=== PATIENT | female | born 1955 | race Caucasian/White ===

== ENCOUNTER 2019-05-12 08:00 | Outpatient (CLI) | payer BC, SELFPAY ==
--- NOTE | ~2019-05-12 | MM_ITS ---
EXAMINATION: MM screening fabio BI w quentin HISTORY: Screening mammogram, family history of breast cancer in her mother. TECHNIQUE: Craniocaudal and mediolateral oblique 3-D tomosynthesis images were obtained and synthetic 2-D images were generated. CAD analysis was submitted and interpreted. COMPARISON: 02/27/2018, 01/03/2017, 12/13/1915 BREAST PARENCHYMAL COMPOSITION: There are scattered areas of fibroglandular density. FINDINGS: There is no evidence of suspicious mass, calcification, or architectural distortion to sugg est malignancy in either breast. There has been no suspicious interval change. IMPRESSION: 1. No mammographic evidence of malignancy. 2. Recommend routine screening mammography in one year. BI-RADS Category 1: Negative Reviewed, dictated and finalized at location A. ONAL HR MANAGER
== END 2019-05-12 08:01 | disposition home or self-care (01) ==
LOC: ANHIMG 08:02
PROVIDERS: PCP Family Medicine; Visit Provider Family Medicine
DX: Z12.31 Encounter for screening mammogram for malignant neoplasm of breast (principal)
CPT/HCPCS: 77063; 77067

== ENCOUNTER 2020-05-26 09:19 | Outpatient (CLI) | payer BC, SELFPAY ==
--- NOTE | ~2020-05-26 | MM_ITS ---
EXAMINATION: MM screening fabio BI w quentin HISTORY: Screening TECHNIQUE: Craniocaudal and mediolateral oblique 3-D tomosynthesis images were obtained and synthetic 2-D images were generated. CAD analysis was submitted and interpreted. COMPARISON: Comparison to multiple prior studies sequentially, with oldest reviewed study dated 10/06. BREAST PARENCHYMAL COMPOSITION: There are scattered areas of fibroglandular density. FINDINGS: There is no evidence of suspicious mass, calcification, or architectural distortion to sugg est malignancy in either breast. There has been no suspicious interval change. IMPRESSION: 1. No mammographic evidence of malignancy. 2. Recommend routine screening mammography in one year. BI-RADS Category 1: Negative Reviewed, dictated and finalized at location A. IAL EDUCATION RESOURCE TEACHER
== END 2020-05-26 09:20 | disposition home or self-care (01) ==
LOC: ANHIMG 09:23
PROVIDERS: PCP Family Medicine; Visit Provider Family Medicine
DX: Z12.31 Encounter for screening mammogram for malignant neoplasm of breast (principal)
CPT/HCPCS: 77063; 77067

== ENCOUNTER 2020-12-13 08:27 | Outpatient (CLI) | payer MEDICARE, SELFPAY ==
[2020-12-13 09:48] LABS: Basophils Percent Auto 0.6 % (0.2-1.2); Eosinophils Absolute Auto 0.2 K/mm3 (0-0.3); Eosinophils Percent Auto 3.4 % (0-4.4); Hematocrit 38.3 % (37.0-47.0); Hemoglobin 12.2 g/dL (12.0-15.0); Immature Granulocyte Absolute 0.02 K/mm3 (0.00-0.031); Immature Granulocyte Percent A 0.4 % (0-0.5); Lymphocytes Absolute Auto 2.16 K/mm3 (0.9-3.2); Lymphocytes Percent Auto 40.9 % (18.3-44.2); Mean Corpuscular HGB Conc 31.9 g/dl (32-36); Mean Corpuscular Hemoglobin 28.2 pg (26-34); Mean Corpuscular Volume 88.7 fl (80-100); Mean Platelet Volume 9.7 fl (7.4-10.4); Monocytes Absolute Auto 0.5 K/mm3 (0.1-0.6); Monocytes Percent Auto 9.1 % (2.6-8.5); Neutrophils Absolute Auto 2.4 K/mm3 (1.3-6.7); Neutrophils Percent Auto 45.6 % (45.5-73.1); Platelet Count Result 331 k/mm3 (150-375); Red Blood Count 4.32 M/mm3 (4.2-5.4); Red Cell Distribution Width 13.8 % (11.5-14.5); White Blood Count 5.3 K/mm3 (4.5-10.0)
[2020-12-13 10:02] LABS: Alanine Aminotransferase 26 U/L (4-35); Albumin Level 4.7 g/dL (3.5-5.1); Alkaline Phosphatase 48 U/L (38-126); Anion Gap 10 mmol/L (8-16); Aspartate Amino Transferase 29 U/L (14-36); Bilirubin,Total 0.4 mg/dL (0.2-1.3); Blood Urea Nitrogen 11 mg/dL (7-17); Calcium 9.2 mg/dL (8.4-10.2); Carbon Dioxide 27 mmol/L (22-30); Chloride 105 mmol/L (98-107); Cholesterol 177 mg/dL (0-200); Estimated Glomerular Filt Rate > 60; Glucose 96 mg/dL (65-110); HDL Direct 69 mg/dL; Potassium 4.6 mmol/L (3.4-5.0); Sodium 142 mmol/L (137-145); Triglycerides 109 mg/dL (<150)
[2020-12-13 10:13] LABS: LDL Cholesterol Direct 78 mg/dL
[2020-12-13 10:53] LABS: Free T4 Free Thyroxine 0.88 ng/mL (0.78-2.19)
== END 2020-12-13 08:28 | disposition home or self-care (01) ==
LOC: ANHLAB 08:54
PROVIDERS: PCP Family Medicine; Visit Provider Family Medicine
DX: E78.2 Mixed hyperlipidemia (principal); R60.9 Edema, unspecified; Z00.00 Encounter for general adult medical examination without abnormal findings
CPT/HCPCS: 36415; 80053; 80061; 84439; 84443; 85025

== ENCOUNTER 2021-01-03 09:33 | Outpatient (CLI) | payer MEDICARE, SELFPAY ==
--- NOTE | 2021-01-03 09:51 | ECHO_ITS ---
Patient Info Name: Jade Angulo Age: 65 years : 1955 Gender: Female Ht: 58 in Wt: 127 lbs BSA: 1.55 m2 HR: 75 bpm Technical Quality: Good Exam Date: 01/03/2021 9:54 AM Exam Location: [facility] Patient Status: Outpatient Admit Date: 01/03/2021 Staff Ordering Physician: Darrin Melchor MD Compensation Associate: KATIE Attending Provider: Darrin Melchor MD Referring Physician: Jill ZUNIGA; Exam Type: CA echo doppler color flow Study Info Indications I35.1 - Nonrheumatic aortic (valve) insufficiency Complete two-dimensional, color flow and Doppler transthoracic echocardiogram is performed. Summary 1. Complete two-dimensional, color flow and Doppler transthoracic echocardiogram is performed. 2. Left ventricular chamber dimension is normal. 3. Left ventricular systolic function is normal, estimated at 60-65%. 4. The left ventricular diastolic function is grade I diastolic dysfunction. 5. E/e' 14 is mildly elevated. 6. There is mild to moderate aortic valve regurgitation. 7. There is trace mitral valve regurgitation. 8. No pulmonary hypertension, estimated pulmonary arterial systolic pressure is 9 mmHg. 9. There is trace pulmonic regurgitation. 10. There is trivial pericardial effusion. Left Ventricle E/e' 14 is mildly elevated. Left ventricular chamber dimension is normal. Left ventricular systolic function is normal, estimated at 60-65%. The left ventricular diastolic function is grade I diastolic dysfunction. Right Ventricle Right ventricular chamber dimension is normal. Right ventricular systolic function is normal. Left Atria Left atrial chamber dimension is normal. Right Atria Right atrial chamber dimension is normal. Aortic Valve The aortic valve is trileaflet. There is no aortic valve stenosis. There is mild to moderate aortic valve regurgitation. Pulmonic Valve There is trace pulmonic regurgitation. Mitral Valve There is no mitral valve stenosis. There is trace mitral valve regurgitation. Tricuspid Valve There is no tricuspid valve regurgitation. No pulmonary hypertension, estimated pulmonary arterial systolic pressure is 9 mmHg. Pericardium/Pleural There is trivial pericardial effusion. Inferior Vena Cava Normal inferior vena cava with >50% collapse upon inspiration consistent with normal right atrial pressure, 5 mmHg. Aorta The aortic root size at the sinus of Valsalva is normal. Left Ventricular Outflow Tract Name Value Normal LVOT 2D LVOT Diameter 1.9 cm LVOT Doppler LVOT Peak Gradient 5 mmHg LVOT Mean Gradient 2 mmHg LVOT VTI 25 cm LVOT VTI/AV VTI Ratio 0.8 LVOT Stroke Volume 71 ml LVOT CO 12.5 l/min LVOT CI 8.0 l/min/m2 Mitral Valve Name Value Normal
== END 2021-01-03 09:34 | disposition home or self-care (01) ==
LOC: ANHCARD 09:35
PROVIDERS: PCP Family Medicine; Visit Provider Family Medicine
DX: I35.1 Nonrheumatic aortic (valve) insufficiency (principal)
CPT/HCPCS: 93306

== ENCOUNTER → 2021-02-28 09:12 | Outpatient (REF) | payer MEDICARE, SELFPAY | LOC: ANHLAB 09:12 | PROVIDERS: PCP Family Medicine; Visit Provider Nurse Practitioner | DX: C44.519 Basal cell carcinoma of skin of other part of trunk (principal); C44.612 Basal cell carcinoma of skin of right upper limb, including shoulder; C44.319 Basal cell carcinoma of skin of other parts of face | CPT/HCPCS: 88305 ==

== ENCOUNTER → 2021-03-13 07:39 | Outpatient (REF) | payer MEDICARE, SELFPAY | LOC: ANHLAB 07:39 | PROVIDERS: PCP Family Medicine; Visit Provider Nurse Practitioner | DX: C44.519 Basal cell carcinoma of skin of other part of trunk (principal) | CPT/HCPCS: 88305; 88331 ==

== ENCOUNTER → 2021-04-17 09:43 | Outpatient (REF) | payer MEDICARE, SELFPAY | LOC: ANHLAB 09:43 | PROVIDERS: PCP Family Medicine; Visit Provider Nurse Practitioner | DX: C44.319 Basal cell carcinoma of skin of other parts of face (principal); C44.612 Basal cell carcinoma of skin of right upper limb, including shoulder | CPT/HCPCS: 88305; 88331 ==

== ENCOUNTER 2021-09-01 14:43 | Outpatient (CLI) | payer MEDICARE, SELFPAY ==
--- NOTE | ~2021-09-01 | MM_ITS ---
EXAMINATION: MM screening fabio BI w quentin HISTORY: Screening mammogram, family history of breast cancer in her mother. TECHNIQUE: Craniocaudal and mediolateral oblique 3-D tomosynthesis images were obtained and synthetic 2-D images were generated. CAD analysis was submitted and interpreted. COMPARISON: 05/26/2020, 05/12/2019, 02/27/2018 BREAST PARENCHYMAL COMPOSITION: There are scattered areas of fibroglandular density. FINDINGS: There is no suspicious mass, calcification, or architectural distortion to suggest malignan cy in either breast. There has been no suspicious interval change. IMPRESSION: 1. No mammographic evidence of malignancy. 2. Recommend routine screening mammography in one year. BI-RADS Category 1: Negative Reviewed, dictated and finalized at location A.
== END 2021-09-01 14:44 | disposition home or self-care (01) ==
LOC: ANHIMG 14:44
PROVIDERS: PCP Family Medicine; Visit Provider Physician Assistant
DX: Z12.31 Encounter for screening mammogram for malignant neoplasm of breast (principal)
CPT/HCPCS: 77063; 77067

== ENCOUNTER 2022-02-09 06:57 | Outpatient (CLI) | payer MEDICARE, SELFPAY ==
[2022-02-09 07:55] LABS: Basophils Absolute Auto 0.1 K/mm3 (0.0-0.1); Basophils Percent Auto 1.5 % (0.2-1.2); Eosinophils Absolute Auto 0.1 K/mm3 (0-0.3); Eosinophils Percent Auto 4.1 % (0-4.4); Hematocrit 27.8 % (37.0-47.0); Hemoglobin 7.9 g/dL (12.0-15.0); Immature Granulocyte Absolute 0.01 K/mm3 (0.00-0.031); Immature Granulocyte Percent A 0.3 % (0-0.5); Lymphocytes Absolute Auto 1.23 K/mm3 (0.9-3.2); Lymphocytes Percent Auto 35.8 % (18.3-44.2); Mean Corpuscular HGB Conc 28.4 g/dl (32-36); Mean Corpuscular Hemoglobin 20.6 pg (26-34); Mean Corpuscular Volume 72.6 fl (80-100); Mean Platelet Volume 9.7 fl (7.4-10.4); Monocytes Absolute Auto 0.3 K/mm3 (0.1-0.6); Monocytes Percent Auto 8.4 % (2.6-8.5); Neutrophils Absolute Auto 1.7 K/mm3 (1.3-6.7); Neutrophils Percent Auto 49.9 % (45.5-73.1); Platelet Count Result 316 k/mm3 (150-375); Red Blood Count 3.83 M/mm3 (4.2-5.4); Red Cell Distribution Width 17.8 % (11.5-14.5); White Blood Count 3.4 K/mm3 (4.5-10.0)
[2022-02-09 08:20] LABS: Alanine Aminotransferase 24 U/L (6-35); Albumin Level 4.5 g/dL (3.5-5.1); Alkaline Phosphatase 45 U/L (38-126); Anion Gap 13 mmol/L (8-16); Aspartate Amino Transferase 29 U/L (14-36); Bilirubin,Total 0.3 mg/dL (0.2-1.3); Blood Urea Nitrogen 12 mg/dL (7-17); Carbon Dioxide 26 mmol/L (22-30); Chloride 103 mmol/L (98-107); Cholesterol 185 mg/dL (0-200); Estimated Glomerular Filt Rate > 60; Glucose 91 mg/dL (65-110); HDL Direct 80 mg/dL; Potassium 3.8 mmol/L (3.4-5.0); Sodium 142 mmol/L (137-145); Triglycerides 73 mg/dL (<150)
[2022-02-09 08:31] LABS: LDL Cholesterol Direct 76 mg/dL
[2022-02-09 10:10] LABS: Hypochromasia 2+ (NORMAL); Microcytosis 1+ (NORMAL); Ovalocytes 1+ (NORMAL)
[2022-02-09 10:11] LABS: Schistocytes None Seen (NORMAL)
[2022-02-12 11:18] LABS: Folic Acid > 20.0 ng/mL (2.76->20)
== END 2022-02-09 06:58 | disposition home or self-care (01) ==
LOC: ANHLAB 06:59
PROVIDERS: PCP Family Medicine; Visit Provider Physician Assistant
DX: E78.2 Mixed hyperlipidemia (principal); I10 Essential (primary) hypertension; I67.1 Cerebral aneurysm, nonruptured; Z79.899 Other long term (current) drug therapy; D64.9 Anemia, unspecified
CPT/HCPCS: 36415; 80053; 80061; 82607; 82746; 84443; 85025

== ENCOUNTER 2022-02-12 10:25 | Outpatient (CLI) | payer MEDICARE, SELFPAY ==
[2022-02-12 18:49] LABS: Iron 21 ug/dL (37-170)
[2022-02-12 18:54] LABS: Basophils Percent Auto 0.9 % (0.2-1.2); Eosinophils Absolute Auto 0.1 K/mm3 (0-0.3); Eosinophils Percent Auto 2.2 % (0-4.4); Hemoglobin 8.3 g/dL (12.0-15.0); Immature Granulocyte Absolute 0.01 K/mm3 (0.00-0.031); Immature Granulocyte Percent A 0.2 % (0-0.5); Immature Reticulocyte Fraction 21.8 % (3.0-15.9); Lymphocytes Absolute Auto 1.67 K/mm3 (0.9-3.2); Mean Corpuscular HGB Conc 27.7 g/dl (32-36); Mean Corpuscular Hemoglobin 20.4 pg (26-34); Mean Corpuscular Volume 73.9 fl (80-100); Mean Platelet Volume 10.2 fl (7.4-10.4); Monocytes Absolute Auto 0.3 K/mm3 (0.1-0.6); Monocytes Percent Auto 7.3 % (2.6-8.5); Neutrophils Absolute Auto 2.5 K/mm3 (1.3-6.7); Neutrophils Percent Auto 53.4 % (45.5-73.1); Platelet Count Result 334 k/mm3 (150-375); Red Blood Count 4.06 M/mm3 (4.2-5.4); Red Cell Distribution Width 17.8 % (11.5-14.5); Reticulocyte Percent 1.57 % (0.7-4.3); Reticulocytes Absolute 0.06 B/L (32.2-175.7); White Blood Count 4.6 K/mm3 (4.5-10.0)
[2022-02-12 19:20] LABS: Percent Iron Saturation 4 % (20-50)
[2022-02-12 19:50] LABS: Hepatitis C Virus Antibody Negative (Negative)
[2022-02-12 19:55] LABS: Immunochemical Fecal Occult Bl Positive (N)
[2022-02-12 19:56] LABS: IFOB Positive Control Positive
[2022-02-12 20:06] LABS: Folic Acid > 20.0 ng/mL (2.76->20)
[2022-02-12 20:07] LABS: Anisocytosis 2+ (NORMAL); Hypochromasia 1+ (NORMAL); Platelet Estimate Adequate (Adequate); Schistocytes None Seen (NORMAL)
== END 2022-02-12 10:26 | disposition home or self-care (01) ==
PROVIDERS: PCP Family Medicine; Visit Provider Physician Assistant
DX: D22.9 Melanocytic nevi, unspecified (principal); Z11.59 Encounter for screening for other viral diseases; D64.9 Anemia, unspecified
CPT/HCPCS: 36415; 82274; 82607; 82728; 82746; 83540; 83550; 85025; 85046; 86803

== ENCOUNTER → 2022-02-12 10:47 | Outpatient (CLI) | payer MEDICARE, SELFPAY ==
--- NOTE | ~2022-02-12 | XR_ITS ---
EXAMINATION: XR chest 2V 02/12/2022 11:13 INDICATION: Anemia. PROCEDURE: 2 view chest COMPARISON: No prior studies for comparison. FINDINGS: The lungs are clear. The cardiomediastinal silhouette is within normal limits. There are no pleural effusions. There is no pneumothorax suspected. IMPRESSION: 1: NO ACUTE CARDIOPULMONARY DISEASE. Reviewed, dictated and finalized at location B. OLOGY PHYSICIAN ASSISTANT
== END ==
PROVIDERS: PCP Physician Assistant; Visit Provider Physician Assistant
DX: D64.9 Anemia, unspecified (principal)
CPT/HCPCS: 71046

== ENCOUNTER 2022-02-21 01:59 | Day surgery (SDC) | payer MEDICARE, SELFPAY ==
[2022-02-19 09:01] VITALS: BMI 26.2
--- NOTE | 2022-02-20 13:45 | PM.HPGS ---
History of Present Illness History of Present Illness Consent: Risks, benefits, and alternatives have been discussed and questions answered. Patient agrees to proceed with procedure. Chief complaint: iron deficient anemia, occult gi bleed Narrative: Jade Angulo is a 66 year old female who was referred for investigation of severe anemia. Hemoglobin is found to be 7.9. She denies any gastrointestinal symptoms and denies seeing blood in her stools or having black tarry stools. Her iron was low at 21 with only 4% saturation. Her mother had colon cancer. Review of Systems Review of Systems: All systems reviewed & are unremarkable except as noted in HPI and below PMFSH Past Medical History Medical History Aortic insufficiency Brain aneurysm 2 - 1 clipped, 1 unruptured 3mm, monitored w/ scan q 2 years Brain aneurysm H/O pyloric stenosis Mixed hyperlipidemia Osteoporosis, unspecified Surgical History Surgical History H/O cataract extraction H/O hernia repair H/O: hysterectomy Family History Family History Mother Carcinoma of colon Family history of malignant neoplasm of breast in first degree relative Family history of congenital heart disease Father Patient's father is Other Diabetes mellitus Family history of cardiovascular disease Family history of elevated blood lipids Family history of malignant neoplasm of breast Hypertension Social History Social History Smoking packs per day: 1 Smoking cigarettes per day: 20.0 Years smoked: 5 Smoking pack-years: 5.00 Smoking status: Former smoker Tobacco type: cigarettes Alcohol intake: current Drinks per week: 7 Substance use: never Substance use type: does not use Lack of Transportation: No Lack of Food: Never True Current Housing: I Have Housing Concerned About Future Housing: No Difficulty Paying Gas/Electric Bills: No Difficulty Paying for Meds: No Currently Unemployed: No Living arrangements: with family Spiritual care concerns: No Meds Home Medications and Allergies Home Medications Medication Instructions Recorded Confirmed Type ascorbate calcium (vitamin C) 500 500 mg PO DAILY 02/11/19 02/21/22 History mg tablet aspirin 325 mg tablet 325 mg PO DAILY 02/11/19 02/21/22 History calcium carbonate 600 mg-vitamin 500 cap PO DAILY 02/11/19 02/21/22 History D3 12.5 mcg (500 unit) capsule (Calcium 600 with Vitamin D3) multivit with 1 tablet PO DAILY 02/11/19 02/21/22 History iafvgfxj-wnvm-ZD-lutein 8 mg iron-400 mcg-300 mcg tablet (Multivitamin Women 50 Plus) omega-3 fatty acids 1,000 mg 1,000 mg PO DAILY 02/11/19 02/21/22 History capsule atorvastatin 20 mg tablet See Rx Instructions .Route 12/11/21 02/21/22 Rx .COMPLEX #90 tabs Allergies Allergy/AdvReac Type Severity Reaction Status Date / Time No Known Allergies Allergy Mild Verified 02/21/22 08:46 Exam Const: General: alert Orientation/consciousness: patient oriented x3 Resp: Auscultation: clear to auscultation bilaterally Cardio: Rhythm: regular rhythm GI: GI Palp: Yes Soft to palpation and No Tenderness to palpation present (GI) Neuro: General: patient oriented x3 Assessment and Plan Assessment and plan (1) Iron deficiency anemia: Code(s): D50.9 - Iron deficiency anemia, unspecified Status: Acute Assessment and Plan: Colonoscopy with possible biopsy or polypectomy or cautery or injection of substances.
--- NOTE | 2022-02-21 08:26 | WPDANESEPPF ---
Anes - Initial Pre Proc Eval Procedure: Operation Date: 02/21/22 10:00 Proposed Procedures p Colonoscopy - Antonino Wang MD Date/Time: 02/21/22 08:26 Surgeon: Antonino Wang MD Pre Op Diagnosis: iron deficient anemia, occult gi bleed Patient Data Age: 66 Gender: F Height: 1.5 m Weight: 59 kg Allergies Allergy/AdvReac Type Severity Reaction Status Date / Time No Known Allergies Allergy Mild Verified 02/21/22 08:46 Home Medications Medication Instructions Recorded Confirmed Type ascorbate calcium (vitamin C) 500 500 mg PO DAILY 02/11/19 02/21/22 History mg tablet aspirin 325 mg tablet 325 mg PO DAILY 02/11/19 02/21/22 History calcium carbonate 600 mg-vitamin 500 cap PO DAILY 02/11/19 02/21/22 History D3 12.5 mcg (500 unit) capsule (Calcium 600 with Vitamin D3) multivit with 1 tablet PO DAILY 02/11/19 02/21/22 History hvpxgema-hnpa-FG-lutein 8 mg iron-400 mcg-300 mcg tablet (Multivitamin Women 50 Plus) omega-3 fatty acids 1,000 mg 1,000 mg PO DAILY 02/11/19 02/21/22 History capsule atorvastatin 20 mg tablet See Rx Instructions .Route 12/11/21 02/21/22 Rx .COMPLEX #90 tabs Patient hx anesthesia problems: none Family hx anesthesia problems: none Results Review: All pre-operative results and documents have been reviewed as part of the pre-operative evaluation. [facility] Past Medical History Medical History (Updated 02/21/22 @ 08:58 by Darwin Vigil MD) Aortic insufficiency Brain aneurysm 2 - 1 clipped, 1 unruptured 3mm, monitored w/ scan q 2 years Brain aneurysm H/O pyloric stenosis Mixed hyperlipidemia Osteoporosis, unspecified Surgical History Surgical History H/O cataract extraction H/O hernia repair H/O: hysterectomy Family History Family History Mother Carcinoma of colon Family history of malignant neoplasm of breast in first degree relative Family history of congenital heart disease Father Patient's father is Other Diabetes mellitus Family history of cardiovascular disease Family history of elevated blood lipids Family history of malignant neoplasm of breast Hypertension Social History Social History (Updated 02/12/22 @ 09:11 by Anita Fletcher MA) Smoking packs per day: 1 Smoking cigarettes per day: 20.0 Years smoked: 5 Smoking pack-years: 5.00 Smoking status: Former smoker Tobacco type: cigarettes Alcohol intake: current Drinks per week: 7 Substance use: never Substance use type: does not use Lack of Transportation: No Lack of Food: Never True Current Housing: I Have Housing Concerned About Future Housing: No Difficulty Paying Gas/Electric Bills: No Difficulty Paying for Meds: No Currently Unemployed: No Living arrangements: with family Spiritual care concerns: No Anes - Eval Final PreProcedure Day of Procedure 02/21/22 08:26 Patient weight: overweight Heart: regular rate and rhythm Lungs: clear to auscultation and normal air movement Airway: Mallampati scale class II Neurological: alert and oriented Last oral intake: >/= 8 hours ASA classification: III Emergent: no Anesthetic plan: proceed Anesthesia type and monitoring: general GIVS Results Review: All pre-operative results and documents have been reviewed as part of the pre-operative evaluation. Informed Consent: The patient's anesthetic plan and its attendant risks and benefits were discussed with the patient/family/POA. Questions were solicited and answers provided to the satisfaction of the patient/family/POA.
[2022-02-21 08:47] VITALS: BP 166/78; PULSE 80; RESP 18; TEMP 36.6; O2SAT 100
[2022-02-21] MEDS: LACTATED RINGERS 1,000 ML 150 ML IV CONT (08:56)
[2022-02-21 10:26] VITALS: BP 114/71; PULSE 84; RESP 25; O2SAT 99
[2022-02-21 10:36] VITALS: BP 118/66; PULSE 73; RESP 22; O2SAT 100
[2022-02-21 10:46] VITALS: BP 146/89; PULSE 69; RESP 19; O2SAT 100
== END 2022-02-21 10:50 | disposition home or self-care (01) ==
PROVIDERS: PCP Physician Assistant; Visit Provider Internal Medicine Gastroenterology
PROC: 0DJD8ZZ Inspection of Lower Intestinal Tract, Via Natural or Artificial Opening Endoscopic (ICD-10-PCS; CPT 45378; principal; 2022-02-21 10:00)
DX: D50.9 Iron deficiency anemia, unspecified (principal); K64.8 Other hemorrhoids; E78.49 Other hyperlipidemia; M81.0 Age-related osteoporosis without current pathological fracture; I35.1 Nonrheumatic aortic (valve) insufficiency; Z87.891 Personal history of nicotine dependence; Z80.0 Family history of malignant neoplasm of digestive organs
CPT/HCPCS: 45378; J2704; J7120

== ENCOUNTER 2022-03-07 01:22 | Day surgery (SDC) | payer MEDICARE, SELFPAY ==
[2022-02-27 14:06] VITALS: BMI 26.2
--- NOTE | 2022-03-06 21:19 | PM.HPGS ---
History of Present Illness History of Present Illness Consent: Risks, benefits, and alternatives have been discussed and questions answered. Patient agrees to proceed with procedure. Chief complaint: JONATHON Narrative: Jade Angulo is a 66 year old female referred for EGD due to JONATHON Hemoglobin 7.9 Review of Systems Review of Systems: All systems reviewed & are unremarkable except as noted in HPI and below PMFSH Past Medical History Medical History Aortic insufficiency Brain aneurysm 2 - 1 clipped, 1 unruptured 3mm, monitored w/ scan q 2 years Brain aneurysm H/O pyloric stenosis Mixed hyperlipidemia Osteoporosis, unspecified Surgical History Surgical History H/O cataract extraction H/O hernia repair H/O: hysterectomy Family History Family History Mother Carcinoma of colon Family history of malignant neoplasm of breast in first degree relative Family history of congenital heart disease Father Patient's father is Other Diabetes mellitus Family history of cardiovascular disease Family history of elevated blood lipids Family history of malignant neoplasm of breast Hypertension Social History Social History Smoking packs per day: 1 Smoking cigarettes per day: 20.0 Years smoked: 5 Smoking pack-years: 5.00 Smoking status: Former smoker Tobacco type: cigarettes Alcohol intake: former Drinks per week: 5 Substance use: never Substance use type: does not use Lack of Transportation: No Lack of Food: Never True Current Housing: I Have Housing Concerned About Future Housing: No Difficulty Paying Gas/Electric Bills: No Difficulty Paying for Meds: No Currently Unemployed: No Education: Master's Degree or Higher Difficulty w/ Childcare or Family Care: No Living arrangements: with family Spiritual care concerns: No Meds Home Medications and Allergies Home Medications Medication Instructions Recorded Confirmed Type ascorbate calcium (vitamin C) 500 500 mg PO DAILY 02/11/19 02/27/22 History mg tablet aspirin 325 mg tablet 325 mg PO DAILY 02/11/19 02/27/22 History calcium carbonate 600 mg-vitamin 500 cap PO DAILY 02/11/19 02/27/22 History D3 12.5 mcg (500 unit) capsule (Calcium 600 with Vitamin D3) multivit with 1 tablet PO DAILY 02/11/19 02/27/22 History muhvbcvk-pggl-PU-lutein 8 mg iron-400 mcg-300 mcg tablet (Multivitamin Women 50 Plus) omega-3 fatty acids 1,000 mg 1,000 mg PO DAILY 02/11/19 02/27/22 History capsule atorvastatin 20 mg tablet See Rx Instructions .Route 12/11/21 02/27/22 Rx .COMPLEX #90 tabs ferrous sulfate 325 mg (65 mg 325 mg PO DAILY 02/26/22 02/27/22 History iron) tablet (Iron (ferrous sulfate)) Allergies Allergy/AdvReac Type Severity Reaction Status Date / Time No Known Allergies Allergy Mild Verified 03/07/22 12:05 Exam Const: General: alert Orientation/consciousness: patient oriented x3 Resp: Auscultation: clear to auscultation bilaterally Cardio: Rhythm: regular rhythm GI: GI Palp: Yes Soft to palpation and No Tenderness to palpation present (GI) Neuro: General: patient oriented x3 Assessment and Plan Assessment and plan (1) Iron deficiency anemia: Code(s): D50.9 - Iron deficiency anemia, unspecified Status: Acute Assessment and Plan: EGD with possible biopsy or dilatation or cautery.
[2022-03-07 12:07] VITALS: BP 150/73; PULSE 66; RESP 18; TEMP 36.4; O2SAT 100
[2022-03-07] MEDS: LACTATED RINGERS 1,000 ML 150 ML IV CONT (12:15)
--- NOTE | 2022-03-07 12:23 | WPDANESEPPF ---
Anes - Initial Pre Proc Eval Procedure: Operation Date: 03/07/22 13:30 Proposed Procedures p Esophagogastroduodenoscopy EGD - Antonino Wang MD Date/Time: 03/07/22 12:23 Surgeon: Antonino Wang MD Pre Op Diagnosis: JONATHON Patient Data Age: 66 Gender: F Height: 1.5 m Weight: 59.5 kg Last Vital Signs Temp 97.6 F 03/07/22 12:07 Pulse 66 03/07/22 12:07 Resp 18 03/07/22 12:07 BP 150/73 H 03/07/22 12:07 Pulse Ox 100 03/07/22 12:07 O2 Del Method Room Air 03/07/22 12:07 Allergies Allergy/AdvReac Type Severity Reaction Status Date / Time No Known Allergies Allergy Mild Verified 03/07/22 12:05 Home Medications Medication Instructions Recorded Confirmed Type ascorbate calcium (vitamin C) 500 500 mg PO DAILY 02/11/19 02/27/22 History mg tablet aspirin 325 mg tablet 325 mg PO DAILY 02/11/19 02/27/22 History calcium carbonate 600 mg-vitamin 500 cap PO DAILY 02/11/19 02/27/22 History D3 12.5 mcg (500 unit) capsule (Calcium 600 with Vitamin D3) multivit with 1 tablet PO DAILY 02/11/19 02/27/22 History fykwiufi-qxcj-MH-lutein 8 mg iron-400 mcg-300 mcg tablet (Multivitamin Women 50 Plus) omega-3 fatty acids 1,000 mg 1,000 mg PO DAILY 02/11/19 02/27/22 History capsule atorvastatin 20 mg tablet See Rx Instructions .Route 12/11/21 02/27/22 Rx .COMPLEX #90 tabs ferrous sulfate 325 mg (65 mg 325 mg PO DAILY 02/26/22 02/27/22 History iron) tablet (Iron (ferrous sulfate)) Patient hx anesthesia problems: none Family hx anesthesia problems: none Results Review: All pre-operative results and documents have been reviewed as part of the pre-operative evaluation. [facility] Past Medical History Medical History Aortic insufficiency Brain aneurysm 2 - 1 clipped, 1 unruptured 3mm, monitored w/ scan q 2 years Brain aneurysm H/O pyloric stenosis Mixed hyperlipidemia Osteoporosis, unspecified Surgical History Surgical History H/O cataract extraction H/O hernia repair H/O: hysterectomy Family History Family History Mother Carcinoma of colon Family history of malignant neoplasm of breast in first degree relative Family history of congenital heart disease Father Patient's father is Other Diabetes mellitus Family history of cardiovascular disease Family history of elevated blood lipids Family history of malignant neoplasm of breast Hypertension Social History Social History (Updated 02/26/22 @ 10:26 by Anita Fletcher MA) Smoking packs per day: 1 Smoking cigarettes per day: 20.0 Years smoked: 5 Smoking pack-years: 5.00 Smoking status: Former smoker Tobacco type: cigarettes Alcohol intake: former Drinks per week: 5 Substance use: never Substance use type: does not use Lack of Transportation: No Lack of Food: Never True Current Housing: I Have Housing Concerned About Future Housing: No Difficulty Paying Gas/Electric Bills: No Difficulty Paying for Meds: No Currently Unemployed: No Education: Master's Degree or Higher Difficulty w/ Childcare or Family Care: No Living arrangements: with family Spiritual care concerns: No Anes - Eval Final PreProcedure Day of Procedure 03/07/22 12:23 Patient weight: normal Heart: regular rate and rhythm Lungs: clear to auscultation Airway: Mallampati scale Neurological: alert and oriented Last oral intake: >/= 8 hours ASA classification: III Emergent: no Anesthetic plan: proceed Anesthesia type and monitoring: general GIVS and standard monitoring Results Review: All pre-operative results and documents have been reviewed as part of the pre-operative evaluation. Informed Consent: The patient's anesthetic plan and its attendant risks and benefits were discussed with the pa
[2022-03-07] MEDS: BENZOCAINE (*SP) 60 ML SPRAY CAN (HURRICAINE) 1 SPRAY MUCOUS MEM (12:58)
[2022-03-07 13:05] VITALS: BP 132/80; PULSE 79; RESP 24; O2SAT 100
[2022-03-07 13:15] VITALS: BP 138/83; PULSE 77; RESP 21; O2SAT 99
[2022-03-07 13:25] VITALS: BP 157/91; PULSE 70; RESP 19; O2SAT 99
== END 2022-03-07 13:32 | disposition home or self-care (01) ==
PROVIDERS: PCP Physician Assistant; Visit Provider Internal Medicine Gastroenterology
PROC: 0DJ08ZZ Inspection of Upper Intestinal Tract, Via Natural or Artificial Opening Endoscopic (ICD-10-PCS; CPT 43235; principal; 2022-03-07 13:30)
DX: D50.9 Iron deficiency anemia, unspecified (principal); K21.9 Gastro-esophageal reflux disease without esophagitis; K44.9 Diaphragmatic hernia without obstruction or gangrene; E78.2 Mixed hyperlipidemia; M81.0 Age-related osteoporosis without current pathological fracture; Z87.891 Personal history of nicotine dependence
CPT/HCPCS: 43239; 87081; 88305; J2704; J7120

== ENCOUNTER 2022-03-15 09:10 | Outpatient (CLI) | payer MEDICARE, SELFPAY ==
--- NOTE | ~2022-03-15 | DEXA_ITS ---
Bone Density Report Name: CATE BISHOP Age: 66 Sex: Female Ethnicity: White Date of : 1955 Indication: postmenopausal; screening for osteoporosis; height loss; cancer; hysterectomy; Referring Provider: JACINTO FLORES Study: Bone densitometry was performed. Exam Date: March 15, 2022 Accession number: [id number] Bone Density: Region BMD T-score Z-score Classification AP Spine(L1-L4) 0.954 -0.8 1.0 Normal Femoral Neck (Left) 0.579 -2.4 -0.8 Osteopenia Total Hip (Left) 0.744 -1.6 -0.3 Osteopenia Femoral Neck (Right) 0.615 -2.1 -0.5 Osteopenia Total Hip (Right) 0.800 -1.2 0.1 Osteopenia Total Hip Mean 0.772 -1.4 -0.1 Osteopenia World Health Organization criteria for BMD impression classify patients as: Normal (T-score at or above -1.0), Osteopenia (T-score between -1.0 and -2.5), or Osteoporosis (T-score at or below -2.5). 10-year Fracture Risk: FRAX not reported because: Treated for osteoporosis Clinical Information Provided by Patient: Is being treated for osteoporosis Has used the following medications: Vitamin D, Calcium Has the following medical conditions: Cancer, Hysterectomy Patient maximum height was 60 Menopause Age: 40 Drinks caffeinated beverages Onset of menses at age 11 Number of children 2 Impression: The patient has low bone mass, based on the Left Femoral Neck T-score. Discussion: It is important to ask patients whether they are taking their medications and to encourage continued and appropriate compliance with their osteoporosis therapies to reduce fracture risk. It is also important to review their risk factors and encourage appropriate calcium and vitamin D intakes, exercise, fall prevention and other lifestyle measures. Follow-Up: Consider a repeat BMD and Vertebral Fracture Assessment (VFA) exam in 2 years or sooner if medically necessary, to reassess this patient's status. Reported by: RAMIRO on 03/15/2022 9:37:00 AM. Reviewed, dictated and finalized at location ANickie MCNAMARA
== END 2022-03-15 09:11 | disposition home or self-care (01) ==
PROVIDERS: PCP Physician Assistant; Visit Provider Physician Assistant
DX: Z78.0 Asymptomatic menopausal state (principal); M85.89 Other specified disorders of bone density and structure, multiple sites
CPT/HCPCS: 77080

== ENCOUNTER 2022-04-27 08:24 | Outpatient (CLI) | payer MEDICARE, SELFPAY ==
[2022-04-27 08:49] LABS: Eosinophils Absolute Auto 0.2 K/mm3 (0-0.3); Eosinophils Percent Auto 4.2 % (0-4.4); Hematocrit 37.6 % (37.0-47.0); Hemoglobin 11.6 g/dL (12.0-15.0); Immature Granulocyte Absolute 0.01 K/mm3 (0.00-0.031); Immature Granulocyte Percent A 0.2 % (0-0.5); Lymphocytes Absolute Auto 1.23 K/mm3 (0.9-3.2); Lymphocytes Percent Auto 30.4 % (18.3-44.2); Mean Corpuscular HGB Conc 30.9 g/dl (32-36); Mean Corpuscular Hemoglobin 28.4 pg (26-34); Mean Corpuscular Volume 91.9 fl (80-100); Mean Platelet Volume 9.5 fl (7.4-10.4); Monocytes Absolute Auto 0.4 K/mm3 (0.1-0.6); Monocytes Percent Auto 9.1 % (2.6-8.5); Neutrophils Absolute Auto 2.2 K/mm3 (1.3-6.7); Neutrophils Percent Auto 55.1 % (45.5-73.1); Platelet Count Result 246 k/mm3 (150-375); Red Blood Count 4.09 M/mm3 (4.2-5.4); Red Cell Distribution Width 22.2 % (11.5-14.5); White Blood Count 4.1 K/mm3 (4.5-10.0)
[2022-04-27 09:56] LABS: Anisocytosis 1+ (NORMAL); Hypochromasia 1+ (NORMAL); Platelet Estimate Adequate (Adequate); Schistocytes None Seen (NORMAL)
== END 2022-04-27 08:25 | disposition home or self-care (01) ==
LOC: ANHLAB 08:26
PROVIDERS: PCP Physician Assistant; Visit Provider Physician Assistant
DX: D50.9 Iron deficiency anemia, unspecified (principal)
CPT/HCPCS: 36415; 85025

== ENCOUNTER 2022-05-14 12:28 | Outpatient (CLI) | payer MEDICARE, SELFPAY ==
--- NOTE | 2022-05-14 12:34 | ECHO_ITS ---
Patient Info Name: Jade Angulo Age: 66 years : 1955 Gender: Female Ht: 58 in Wt: 130 lbs BSA: 1.57 m2 HR: 65 bpm BP: 134 / 84 mmHg Technical Quality: Good Exam Date: 05/14/2022 12:44 PM Exam Location: [facility] Patient Status: Outpatient Admit Date: 05/14/2022 Staff Ordering Physician: Michael Terrazas PA-C Seismograph Computer: Ann Luna RDCS Attending Provider: Michael Terrazas PA-C Referring Physician: Nini JACKSON; Exam Type: CA echo doppler color flow Study Info Indications I35.1 - Nonrheumatic aortic (valve) insufficiency Complete two-dimensional, color flow and Doppler transthoracic echocardiogram is performed. Summary 1. Complete two-dimensional, color flow and Doppler transthoracic echocardiogram is performed. 2. Left ventricular chamber dimension is normal. 3. Left ventricular systolic function is normal, estimated at 65-70%. 4. The left ventricular diastolic function is grade I diastolic dysfunction. 5. E/e' 12 is mildly elevated. 6. Global longitudinal strain is normal at -19.0%. 7. There is mild aortic valve sclerosis. 8. There is mild aortic valve regurgitation. 9. No pulmonary hypertension, estimated pulmonary arterial systolic pressure is 24 mmHg. Left Ventricle E/e' 12 is mildly elevated. Global longitudinal strain is normal at -19.0%. Left ventricular chamber dimension is normal. Left ventricular systolic function is normal, estimated at 65-70%. The left ventricular diastolic function is grade I diastolic dysfunction. Right Ventricle Right ventricular systolic function is normal and with normal TAPSE 2.3 cm. Right ventricular chamber dimension is normal. Left Atria Left atrial chamber dimension is normal. Right Atria Right atrial chamber dimension is normal. Aortic Valve The aortic valve is trileaflet. There is mild aortic valve sclerosis. There is no aortic valve stenosis. There is mild aortic valve regurgitation. Pulmonic Valve There is no pulmonic regurgitation. Mitral Valve There is no mitral valve stenosis. There is no mitral valve regurgitation. Tricuspid Valve There is no tricuspid valve regurgitation. No pulmonary hypertension, estimated pulmonary arterial systolic pressure is 24 mmHg. Pericardium/Pleural There is no pericardial effusion. Inferior Vena Cava Normal inferior vena cava with >50% collapse upon inspiration consistent with normal right atrial pressure, 5 mmHg. Aorta The aortic root size at the sinus of Valsalva is normal. Left Ventricular Outflow Tract Name Value Normal LVOT 2D LVOT Diameter 1.9 cm LVOT Doppler LVOT Peak Gradient 5 mmHg LVOT Mean Gradient 3 mmHg LVOT VTI 29 cm LVOT VTI/AV VTI Ratio 0.9 LVOT Stroke Volume 79 ml LVOT CO 5.4 l/min LVOT CI 3.4 l/min/m2 Pulmonic Valve Name V
== END 2022-05-14 12:29 | disposition home or self-care (01) ==
LOC: ANHCARD 12:29
PROVIDERS: PCP Family Medicine; Visit Provider Physician Assistant
DX: I10 Essential (primary) hypertension (principal); I35.1 Nonrheumatic aortic (valve) insufficiency
CPT/HCPCS: 93306

== ENCOUNTER 2022-05-30 07:29 | Outpatient (CLI) | payer MEDICARE, SELFPAY ==
[2022-05-30 08:47] LABS: Iron 46 ug/dL (37-170)
[2022-05-30 08:58] LABS: Percent Iron Saturation 11 % (20-50)
[2022-05-30 09:13] LABS: Basophils Percent Auto 0.7 % (0.2-1.2); Eosinophils Absolute Auto 0.2 K/mm3 (0-0.3); Eosinophils Percent Auto 3.7 % (0-4.4); Hematocrit 42.7 % (37.0-47.0); Hemoglobin 13.3 g/dL (12.0-15.0); Immature Granulocyte Absolute 0.01 K/mm3 (0.00-0.031); Immature Granulocyte Percent A 0.2 % (0-0.5); Lymphocytes Absolute Auto 1.32 K/mm3 (0.9-3.2); Lymphocytes Percent Auto 30.5 % (18.3-44.2); Mean Corpuscular HGB Conc 31.1 g/dl (32-36); Mean Corpuscular Hemoglobin 29.4 pg (26-34); Mean Corpuscular Volume 94.5 fl (80-100); Mean Platelet Volume 10.1 fl (7.4-10.4); Monocytes Absolute Auto 0.4 K/mm3 (0.1-0.6); Monocytes Percent Auto 9.7 % (2.6-8.5); Neutrophils Absolute Auto 2.4 K/mm3 (1.3-6.7); Neutrophils Percent Auto 55.2 % (45.5-73.1); Platelet Count Result 256 k/mm3 (150-375); Red Blood Count 4.52 M/mm3 (4.2-5.4); Red Cell Distribution Width 14.2 % (11.5-14.5); White Blood Count 4.3 K/mm3 (4.5-10.0)
[2022-06-03 16:01] LABS: Vitamin D 1,25 (OH)2 Total 53 pg/mL (18-72); Vitamin D2 1,25 (OH)2 <8 pg/mL; Vitamin D3 1,25 (OH)2 53 pg/mL
== END 2022-05-30 07:30 | disposition home or self-care (01) ==
PROVIDERS: PCP Family Medicine; Visit Provider Physician Assistant
DX: M85.80 Other specified disorders of bone density and structure, unspecified site (principal); M81.0 Age-related osteoporosis without current pathological fracture; D64.9 Anemia, unspecified; I10 Essential (primary) hypertension; D22.9 Melanocytic nevi, unspecified
CPT/HCPCS: 36415; 82652; 82728; 83540; 83550; 85025

== ENCOUNTER 2022-08-24 07:04 | Outpatient (CLI) | payer MEDICARE, SELFPAY ==
[2022-08-24 09:36] LABS: Basophils Percent Auto 0.7 % (0.2-1.2); Eosinophils Absolute Auto 0.1 K/mm3 (0-0.3); Eosinophils Percent Auto 2.5 % (0-4.4); Hematocrit 41.2 % (37.0-47.0); Hemoglobin 13.3 g/dL (12.0-15.0); Lymphocytes Absolute Auto 1.29 K/mm3 (0.9-3.2); Lymphocytes Percent Auto 32.2 % (18.3-44.2); Mean Corpuscular HGB Conc 32.3 g/dl (32-36); Mean Corpuscular Hemoglobin 29.6 pg (26-34); Mean Corpuscular Volume 91.8 fl (80-100); Monocytes Absolute Auto 0.3 K/mm3 (0.1-0.6); Monocytes Percent Auto 8.5 % (2.6-8.5); Neutrophils Absolute Auto 2.3 K/mm3 (1.3-6.7); Neutrophils Percent Auto 56.1 % (45.5-73.1); Platelet Count Result 231 k/mm3 (150-375); Red Blood Count 4.49 M/mm3 (4.2-5.4); Red Cell Distribution Width 14.1 % (11.5-14.5)
[2022-08-24 09:53] LABS: Alanine Aminotransferase 25 U/L (6-35); Albumin Level 4.7 g/dL (3.5-5.1); Alkaline Phosphatase 40 U/L (38-126); Anion Gap 7 mmol/L (8-16); Aspartate Amino Transferase 28 U/L (14-36); Blood Urea Nitrogen 18 mg/dL (7-17); Carbon Dioxide 29 mmol/L (22-30); Chloride 103 mmol/L (98-107); Cholesterol 176 mg/dL (0-200); Estimated Glomerular Filt Rate > 60; Glucose 89 mg/dL (65-110); HDL Direct 82 mg/dL; Potassium 4.4 mmol/L (3.4-5.0); Sodium 139 mmol/L (137-145); Triglycerides 105 mg/dL (<150)
[2022-08-24 09:55] LABS: Iron 138 ug/dL (37-170)
[2022-08-24 10:04] LABS: LDL Cholesterol Direct 82 mg/dL
[2022-08-24 10:14] LABS: Percent Iron Saturation 41 % (20-50)
== END 2022-08-24 07:05 | disposition home or self-care (01) ==
LOC: ANHLAB 07:05
PROVIDERS: PCP Family Medicine; Visit Provider Physician Assistant
DX: D22.9 Melanocytic nevi, unspecified (principal); Z79.899 Other long term (current) drug therapy; E78.2 Mixed hyperlipidemia; D64.9 Anemia, unspecified; I67.1 Cerebral aneurysm, nonruptured
CPT/HCPCS: 36415; 80053; 80061; 82728; 83540; 83550; 84443; 85025

== ENCOUNTER 2022-11-05 07:39 | Outpatient (CLI) | payer MEDICARE, SELFPAY ==
--- NOTE | ~2022-11-05 | MM_ITS ---
EXAMINATION: MM screening fabio BI w quentin HISTORY: Screening TECHNIQUE: Craniocaudal and mediolateral oblique 3-D tomosynthesis images were obtained and synthetic 2-D images were generated. CAD analysis was submitted and interpreted. COMPARISON: Comparison to multiple prior studies sequentially, with oldest reviewed study dated 12/21. BREAST PARENCHYMAL COMPOSITION: There are scattered areas of fibroglandular density. FINDINGS: There is no evidence of suspicious mass, calcification, or architectural distortion to sugg est malignancy in either breast. There has been no suspicious interval change. IMPRESSION: 1. No mammographic evidence of malignancy. 2. Recommend routine screening mammography in one year. BI-RADS Category 1: Negative Reviewed, dictated and finalized at location A.
== END 2022-11-05 07:40 | disposition home or self-care (01) ==
LOC: ANHIMG 07:41
PROVIDERS: PCP Physician Assistant; Visit Provider Physician Assistant
DX: Z12.31 Encounter for screening mammogram for malignant neoplasm of breast (principal)
CPT/HCPCS: 77063; 77067

== ENCOUNTER 2022-12-06 07:15 | Outpatient (CLI) | payer MEDICARE, SELFPAY ==
[2022-12-06 07:50] LABS: Eosinophils Absolute Auto 0.1 K/mm3 (0-0.3); Eosinophils Percent Auto 3.4 % (0-4.4); Hematocrit 39.2 % (37.0-47.0); Hemoglobin 12.4 g/dL (12.0-15.0); Lymphocytes Absolute Auto 1.48 K/mm3 (0.9-3.2); Lymphocytes Percent Auto 38.2 % (18.3-44.2); Mean Corpuscular HGB Conc 31.6 g/dl (32-36); Mean Corpuscular Volume 91.8 fl (80-100); Mean Platelet Volume 9.9 fl (7.4-10.4); Monocytes Absolute Auto 0.4 K/mm3 (0.1-0.6); Neutrophils Absolute Auto 1.9 K/mm3 (1.3-6.7); Neutrophils Percent Auto 48.4 % (45.5-73.1); Platelet Count Result 266 k/mm3 (150-375); Red Blood Count 4.27 M/mm3 (4.2-5.4); Red Cell Distribution Width 12.9 % (11.5-14.5); White Blood Count 3.9 K/mm3 (4.5-10.0)
[2022-12-06 08:37] LABS: Ferritin 6.25 ng/mL (11.1-264)
== END 2022-12-06 07:16 | disposition home or self-care (01) ==
PROVIDERS: PCP Physician Assistant; Visit Provider Physician Assistant
DX: I12.9 Hypertensive chronic kidney disease with stage 1 through stage 4 chronic kidney disease, or unspecified chronic kidney disease (principal); D22.9 Melanocytic nevi, unspecified; N18.9 Chronic kidney disease, unspecified
CPT/HCPCS: 36415; 82728; 85025

== ENCOUNTER → 2022-12-31 09:12 | Outpatient (CLI) | payer MEDICARE, SELFPAY ==
--- NOTE | ~2022-12-31 | XR_ITS ---
XR knee RT 3V 12/31/2022 09:46 Indication: Right knee pain Procedure: 4 views right knee Comparion: No prior studies for comparison. Findings: Mild osteoarthritis of the right knee. No fracture, subluxation or dislocation. No signific ant joint effusion. No foreign bodies. Impression: 1: Mild osteoarthritis of the right knee. Reviewed, dictated and finalized at location B. Impression: 1: Mild osteoarthritis of the right knee.
--- NOTE | ~2022-12-31 | XR_ITS ---
XR lumbar spine 2-3V 12/31/2022 09:47 Indication: Low back pain Procedure: 4 views lumbar spine Comparison: 07/04/2017 Findings: There is a superior endplate compression fracture of L3, age indeterminate. There is sacral ization of L5. Osteopenia. There is disc narrowing at all lumbar levels. There is levoscoliosis. Ther e is facet hypertrophy at L4-5. Sacral foramen are symmetric. Impression: 1: Age-indeterminate superior endplate compression fracture of L3. Consider correlation with CT or MR I. 2: Moderate-severe lumbar spondylosis with levoscoliosis. Reviewed, dictated and finalized at location B. Impression: 1: Age-indeterminate superior endplate compression fracture of L3. Consider cor relation with CT or MRI. 2: Moderate-severe lumbar spondylosis with levoscoliosis.
--- NOTE | ~2022-12-31 | XR_ITS ---
XR knee LT 3V 12/31/2022 09:47 Indication: Left knee pain Procedure: 3 views left knee Comparison: 3 views left knee Findings: There is mild osteoarthritis. No fracture, subluxation or dislocation. No significant joint effusion. No foreign bodies. Impression: 1: Mild osteoarthritis of the left knee. Reviewed, dictated and finalized at location B. Impression: 1: Mild osteoarthritis of the left knee.
== END ==
PROVIDERS: PCP Nurse Practitioner Family; Visit Provider Nurse Practitioner Family
DX: M81.0 Age-related osteoporosis without current pathological fracture (principal); M48.56XA Collapsed vertebra, not elsewhere classified, lumbar region, initial encounter for fracture; M43.06 Spondylolysis, lumbar region; M41.86 Other forms of scoliosis, lumbar region; M17.0 Bilateral primary osteoarthritis of knee
CPT/HCPCS: 72100; 73562

== ENCOUNTER → 2023-01-16 10:24 | Outpatient (CLI) | payer MEDICARE, SELFPAY ==
--- NOTE | ~2023-01-16 | MR_ITS ---
MRI of the lumbar spine Clinical History: Compression fracture Technique: Axial T2-weighted images, and sagittal T1-weighted, T2-weighted, and T2 fat-sat images wer e acquired. Findings: There is mild to moderate chronic compression fracture of L3, with loss of height but no ma rrow edema. No other fracture or subluxation evident. No suspicious bone marrow signal abnormality se en. At L1-L2, there is minimal disc bulge and mild to moderate facet arthropathy. No central canal stenos is or definite neural foraminal narrowing. At L2-L3, there is minimal disc bulge with advanced facet arthropathy. There is mild central canal st enosis. There is moderate bilateral neural foraminal narrowing. L3-L4, there is mild disc bulge with severe facet arthropathy. No ceasar central canal stenosis. There is mild bilateral neural foraminal narrowing. At L4-L5, there is disc bulge and severe facet arthropathy. There is no ceasar central canal stenosis. There is mild right neural foraminal narrowing. Left neural foramen preserved. At L5-S1, there is no disc bulge or herniation. There is facet arthropathy. No central canal stenosis or neural foraminal narrowing. Paravertebral soft tissues are unremarkable. Impression: Bpuk-sc-mcfbrair chronic compression fracture of L3. Mild degenerative spondylosis overall, as detailed above. Reviewed, dictated and finalized at [facility]. Impression: [id number] chronic compression fracture of L3. Mild degenerative spondylosis overall, as detailed above.
== END ==
PROVIDERS: PCP Family Medicine; Visit Provider Physician Assistant
DX: M43.06 Spondylolysis, lumbar region (principal); M51.37 Other intervertebral disc degeneration, lumbosacral region; S32.030A Wedge compression fracture of third lumbar vertebra, initial encounter for closed fracture
CPT/HCPCS: 72148

== ENCOUNTER 2023-05-14 12:42 | Outpatient (CLI) | payer MEDICARE, SELFPAY ==
--- NOTE | 2023-05-14 12:55 | ECHO_ITS ---
Patient Info Name: Jade Angulo Age: 67 years : 1955 Gender: Female Ht: 58 in Wt: 130 lbs BSA: 1.57 m2 HR: 72 bpm BP: 130 / 72 mmHg Technical Quality: Good Exam Date: 05/14/2023 1:03 PM Exam Location: Echo Lab Patient Status: Outpatient Admit Date: 05/14/2023 Staff Ordering Physician: Michael Terrazas PA-C [employer] Assembler: Attending Provider: Michael Terrazas PA-C Referring Physician: Nini JACKSON; Exam Type: CA echo doppler color flow Study Info Indications I35.1 - Nonrheumatic aortic (valve) insufficiency Complete two-dimensional, color flow and Doppler transthoracic echocardiogram is performed. Summary 1. Complete two-dimensional, color flow and Doppler transthoracic echocardiogram is performed. 2. Left ventricular chamber dimension is normal. 3. Left ventricular systolic function is normal, estimated at 65-70%. 4. There is mild concentric increased left ventricular wall thickness. 5. The left ventricular diastolic function is grade I diastolic dysfunction. 6. E/e' 7 is not elevated. 7. There is mild aortic valve sclerosis. 8. There is mild aortic valve regurgitation. 9. There is trace tricuspid valve regurgitation. 10. There is trace pulmonic regurgitation. Left Ventricle E/e' 7 is not elevated. Left ventricular chamber dimension is normal. Left ventricular systolic function is normal, estimated at 65-70%. There is mild concentric increased left ventricular wall thickness. The left ventricular diastolic function is grade I diastolic dysfunction. Right Ventricle Right ventricular chamber dimension is normal. Right ventricular systolic function is normal. Left Atria Left atrial chamber dimension is normal. Right Atria Right atrial chamber dimension is normal. Aortic Valve The aortic valve is trileaflet. There is mild aortic valve sclerosis. There is no aortic valve stenosis. There is mild aortic valve regurgitation. Pulmonic Valve There is trace pulmonic regurgitation. Mitral Valve There is no mitral valve stenosis. There is no mitral valve regurgitation. Tricuspid Valve RVSP is not calculated due to an inadequate TR jet. There is trace tricuspid valve regurgitation. Pericardium/Pleural There is no pericardial effusion. Inferior Vena Cava Normal inferior vena cava with >50% collapse upon inspiration consistent with normal right atrial pressure, 5 mmHg. Aorta The aortic root size at the sinus of Valsalva is normal. Left Ventricular Outflow Tract Name Value Normal LVOT 2D LVOT Diameter 2.0 cm LVOT Doppler LVOT Peak Gradient 5 mmHg LVOT Mean Gradient 2 mmHg LVOT VTI 25 cm LVOT VTI/AV VTI Ratio 1.0 LVOT Stroke Volume 77 ml LVOT CO 5.3 l/min LVOT CI 3.4 l/min/m2 Pulmonic Valve Name Value Normal PV Doppler
== END 2023-05-14 12:43 | disposition home or self-care (01) ==
LOC: ANHCARD 12:43
PROVIDERS: PCP Family Medicine; Visit Provider Physician Assistant
DX: I35.8 Other nonrheumatic aortic valve disorders (principal); I34.0 Nonrheumatic mitral (valve) insufficiency; R93.1 Abnormal findings on diagnostic imaging of heart and coronary circulation
CPT/HCPCS: 93306

== ENCOUNTER 2023-06-28 07:57 | Outpatient (CLI) | payer MEDICARE, SELFPAY ==
[2023-06-28 08:58] LABS: Basophils Percent Auto 0.6 % (0.2-1.2); Eosinophils Absolute Auto 0.1 K/mm3 (0-0.3); Eosinophils Percent Auto 4.1 % (0-4.4); Hematocrit 39.7 % (37.0-47.0); Hemoglobin 12.8 g/dL (12.0-15.0); Lymphocytes Absolute Auto 1.22 K/mm3 (0.9-3.2); Lymphocytes Percent Auto 38.4 % (18.3-44.2); Mean Corpuscular HGB Conc 32.2 g/dl (32-36); Mean Corpuscular Volume 93.2 fl (80-100); Mean Platelet Volume 9.9 fl (7.4-10.4); Monocytes Absolute Auto 0.4 K/mm3 (0.1-0.6); Monocytes Percent Auto 11.6 % (2.6-8.5); Neutrophils Absolute Auto 1.4 K/mm3 (1.3-6.7); Neutrophils Percent Auto 45.3 % (45.5-73.1); Platelet Count Result 238 k/mm3 (150-375); Red Blood Count 4.26 M/mm3 (4.2-5.4); Red Cell Distribution Width 12.7 % (11.5-14.5); White Blood Count 3.2 K/mm3 (4.5-10.0)
[2023-06-28 09:16] LABS: Alanine Aminotransferase 24 U/L (6-35); Albumin Level 4.4 g/dL (3.5-5.1); Alkaline Phosphatase 56 U/L (38-126); Anion Gap 2 mmol/L (4-12); Aspartate Amino Transferase 25 U/L (14-36); Bilirubin,Total 0.4 mg/dL (0.2-1.3); Blood Urea Nitrogen 10 mg/dL (7-17); Calcium 9.3 mg/dL (8.4-10.2); Carbon Dioxide 30 mmol/L (22-30); Chloride 106 mmol/L (98-107); Cholesterol 171 mg/dL (0-200); Estimated Glomerular Filt Rate > 60; Glucose 91 mg/dL (65-110); HDL Direct 70 mg/dL; Potassium 4.1 mmol/L (3.4-5.0); Sodium 138 mmol/L (137-145); Triglycerides 104 mg/dL (<150)
[2023-06-28 09:24] LABS: LDL Cholesterol Direct 83 mg/dL
[2023-06-28 11:25] LABS: Iron 70 ug/dL (37-170)
[2023-06-28 11:35] LABS: Percent Iron Saturation 22 % (20-50)
== END 2023-06-28 07:58 | disposition home or self-care (01) ==
LOC: ANHLAB 08:00
PROVIDERS: PCP Family Medicine; Visit Provider Physician Assistant
DX: I35.1 Nonrheumatic aortic (valve) insufficiency (principal); M81.0 Age-related osteoporosis without current pathological fracture; I67.1 Cerebral aneurysm, nonruptured; E78.2 Mixed hyperlipidemia; Z80.0 Family history of malignant neoplasm of digestive organs; Z79.899 Other long term (current) drug therapy; D50.9 Iron deficiency anemia, unspecified
CPT/HCPCS: 36415; 80053; 80061; 82728; 83540; 83550; 84443; 85025

== ENCOUNTER 2024-04-23 09:51 | Outpatient (CLI) | payer MEDICARE, SELFPAY ==
--- NOTE | ~2024-04-23 | MM_ITS ---
EXAMINATION: MM screening fabio BI w quentin HISTORY: Screening TECHNIQUE: Craniocaudal and mediolateral oblique 3-D tomosynthesis images were obtained and synthetic 2-D images were generated. CAD analysis was submitted and interpreted. COMPARISON: Comparison to multiple prior studies sequentially, with oldest reviewed study dated 12/23. BREAST PARENCHYMAL COMPOSITION: Not dense: There are scattered areas of fibroglandular density. FINDINGS: There is no evidence of suspicious mass, calcification, or architectural distortion to sugg est malignancy in either breast. There has been no suspicious interval change. IMPRESSION: 1. No mammographic evidence of malignancy. 2. Recommend routine screening mammography in one year. BI-RADS Category 1: Negative Reviewed, dictated and finalized at location A. CIATE PROFESSOR OF CHEMISTRY
--- OUTSIDE RECORDS SUMMARY | 2024-04-23 10:27 | XMS_ITS | Clinical Summary ---
Author Organization [facility] Address [address] [place] [address] Care Team Providers Care Aircraft Load Controller Name Role Phone Julius Flores MD Primary Care Provider [phone] Allergies No known active allergies Medications ascorbic acid-multivit,m ins 18 1,000 mg tablet 500 mg daily 04/01/2009 Active aspirin 325 mg tablet Active MULTIVITAMIN ORAL Active calcium citrate-vitamin D3 (CITRACAL WITH D) 315 mg- 250 unit per tablet daily 630mg - 500iu Active omega 6-rzt-quf-fish oil 300-1,000 mg capsule TAKE 1 CAPSULE 3 TIMES DAILY Active atorvastatin (LIPITOR) 20 mg tablet TK 1 T PO QHS 10 03/01/[address] (PROTONIX) 40 mg EC tablet 40 MG ORALLY EVERY MORNING 01/14/2024 Active Active Problems Problem Noted Date Diagnosed Date Aneurysm ([facility]) 03/27/2019 Cerebral arterial aneurysm 08/12/2012 Encounters Date Type Department Care Team Description 03/19/2024 9:00 AM DIRECTOR DECISION SUPPORT Office Visit [facility] [address] [place] [address] [place] [address] Dang Pineda NP Aneurysm ([facility]) ([facility]); Cerebral arterial aneurysm 03/19/2024 7:01 AM DIRECTOR DECISION SUPPORT - 03/19/2024 11:59 PM DIRECTOR DECISION SUPPORT Hospital Encounter [facility] [address] [place] [address] Navdeep Aponte MD Cerebral aneurysm, nonruptured Discharge Disposition: Discharge to home or self care 03/19/2024 Telephone [facility] [address] [facility] [address] [facility] [address]th [place] [address] [place] [phone] Dang Pineda NP 02/26/2024 Telephone [facility] Scheduling [address] [place], [place] [id number] Aurora Johnston from Last 3 Months Immunizations Name Administration Dates Next Due Influenza, Trivalent, Preservative Free, Intramu scular 11/23/2016 ZOSTER LIVE 02/22/2012 Surgical History Surgery Date Site/Laterality Comments NH UNLISTED PROCEDURE ABDOME N PERITONEUM & OMENTUM Hernia Repair - (Added by TW Conv) NH TOTAL ABDOMINAL HYSTERECT W/WO RMVL TUBE OVARY Hysterectomy - (Added by TW Conv) HYSTERECTOMY HERNIA REPAIR Medical History Medical History Date Comments Personal history of malignan t neoplasm of cervix uteri Cervical Cancer - (Added by TW Conv) Age-related osteoporosis wit hout current pathological fracture Osteoporosis - (Added by TW Conv) Personal history of other en docrine, nutritional and metabolic disease History of hyperlipi demia - (Added by TW Conv) Personal history of other di seases of the nervous system and sense organs History of migrain e headaches - (Added by TW Conv) Aneurysm (CMS/HCC) (HCC) Cancer (CMS/HCC) (HCC) Osteoarthritis Family History Medical History Relation Name Comments Aneurysm Father Hypertension Maternal Grandfather Hypertension Maternal Grandmother Cancer Mother Hypertension Mother Cerebral aneurysm Other Cerebral A rtery Aneurysm - (Added by TW Conv) Stroke Paternal Grandmother Aneurysm Sister Relation Name Status Comments Father Maternal Grandfather Maternal Grandmother Mother Other Paternal Grandmother Sister Social History Tobacco Use Types Packs/Day Years Used Date Smoking Tobacco: Former Cigarettes 1 5 1 0 - 1994 Smokeless Tobacco: Never Tobacco Cessation:Counseling Given: No AUDIT-C Answer Date Recorded Q1: How often do you have a drink containing alc ohol? Monthly or less 10/06/2021 Q2: How many drinks containi ng alcohol do you have on a typical day when you are drinking? 1 or 2 10/06/2021 Q3: How often do you have si x or more drinks on one occasion? Never 10/06/2021 Comments Unknown Sex and Gender Information Value Date Recorded Sex Assigned at Not on file Legal Sex Female 1:05 AM DIRECTOR DECISION SUPPORT Gender Identity Not on file Sexual Orientation Not on file Obstetrics History Last Filed Vital Signs Vital Sign Reading Time Taken Comments Blood Pressure 143/86 03/19/2024 9:00 AM DIRECTOR DECISION SUPPORT Pulse 88 03/19/2024 9:00 AM DIRECTOR DECISION SUPPORT Temperature - - Respiratory Rate - - Oxygen Saturation - - Inhaled Oxygen Concentration - - Weight 58.3 kg (128 lb 9.6 oz) 10/06/2021 11:48 AM CDT Height 147.3 cm (4' 10 ) 03/19/2024 9:00 AM DIRECTOR DECISION SUPPORT Body Mass Index 26.88 10/06/2021 11:48 AM CDT Plan of Treatment Health Maintenance Due Date Last Done Comments Breast Cancer Screening-Mammogram 1955 Colon Cancer Screening-Colonoscopy 1955 Depression Screening 1955 Fall Risk Assessment 1955 Hepatitis C Screening 1955 Osteoporosis Screening-Bone Density Scan 1955 DTaP/Tdap/Td Vaccine (1 - Tdap) 11/20/1966 Hepatitis B Screening 11/20/1973 Zoster Vaccine (2 of 3) 04/18/2012 02/22/2012 Pneumococcal vaccine 65+ (1 of 1 - PCV) 11/20/2020 Well Visit 65+ 11/20/2020 Influenza Vaccine (#1) 2023 11/23/2016 Procedures Procedure Name Priority Date/Time Associated Diagnosis Comments CTA HEAD NECK W WO CONTRAST Schedule Routine, Read Routine (OP Routine) 03/19/2024 7:40 AM DIRECTOR DECISION SUPPORT Cerebral aneurysm, nonruptured POCT CREATININE - DEVICE Routine 03/19/2024 7:23 AM DIRECTOR DECISION SUPPORT from Last 3 Months Results * CTA Head Neck W WO Contrast (03/19/2024 7:40 AM DIRECTOR DECISION SUPPORT) Anatomical Region Laterality Modality Head and Neck N/A Computed Tomogra phy 03/19/2024 8:52 AM DIRECTOR DECISION SUPPORT Impressions 03/19/2024 9:05 AM DIRECTOR DECISION SUPPORT 1. ??Grossly unchanged right superior cerebellar artery/basilar artery tip aneurysm measuring 0.7 x 0.4 cm within limitation of suboptimal phase of contrast. 2. ??Postsurgical changes of left frontotemporal craniotomy and previous posterior communicating artery aneurysm clipping. Dictated by: Andrews Paul MD PHD The radiology attending physician has personally reviewed this study, and had reviewed and/or edited this written report and agrees with it. Electronically signed by: Gera Carlisle M.D, PHD Narrative 03/19/2024 9:05 AM DIRECTOR DECISION SUPPORT EXAMINATION: 1. Computed tomography angiography (CTA) of the head without and with contrast 2. Computed tomography angiography (CTA) of the neck with contrast HISTORY: Follow-up cerebral aneurysm TECHNIQUE: CT of the head was performed with images acquired from skull base to vertex without intravenous contrast. Computed tomographic angiography was then obtained from the aortic arch to the vertex following the uneventful administration of intravenous contrast. 3D images were generated on a dedicated workstation. Contrast information: 93 mL [id number]-350 COMPARISON: CTA dated 10/06/2021 FINDINGS: HEAD: Postsurgical changes of left frontotemporal craniotomy for aneurysm clipping seen. ??There is diffuse cerebral volume loss with mild dilatation of the lateral and third ventricles. There is no acute intracranial hemorrhage. No mass effect or midline shift is present. The akhtar-white matter differentiation is normal. The visualized portions of the orbits are normal. The visualized portions of the mastoids are normal. The visualized portions of the paranasal sinuses are normal. No fractures are identified. NECK: Scattered subcentimeter lymph nodes are seen in the neck. None are pathologically enlarged. The muscles of the neck are normal. Fascial planes are preserved and the deep spaces of the neck are normal. The visualized airway is widely patent. There is mild to moderate stepwise anterolisthesis of C3-C5 with focal kyphosis seen at these levels. ??There is moderate to severe degenerative disc disease from C6-C7. ??There is mild spinal canal stenosis from C5-C6. ??There is moderate to severe osseous neural foraminal stenosis on the right at C4-C5. Small amount of fluid/debris is seen within the esophagus. ??Imaged lungs demonstrate mild dependent atelectasis. CTA: Examination is mildly limited by phase of contrast. Within this limitation, there is no significant change of the right superior cerebellar artery/basilar tip aneurysm measuring 0.7 x 0.4 cm (/) without evidence of rupture. The visualized aortic arch appears normal with normal configuration of the great vessels. The innominate artery and both subclavian arteries are normal in course and caliber. The common carotid arteries are normal in course and caliber with normal carotid bifurcations bilaterally. The course and caliber of the internal carotid arteries in the neck are normal. No areas of atherosclerotic narrowing or filling defects are identified. The visualized course and caliber of the internal carotid arteries in the head are normal. No areas of atherosclerotic narrowing or filling defects are identified. The fltrft-ov-Vebewj is complete. The anterior and middle cerebral arteries are normal. The vertebral arteries are right dominant. The basilar artery is normal. The posterior cerebral arteries are normal. Procedure Note Gera Carlisle MD PhD - 03/19/2024 EXAMINATION: 1. Computed tomography angiography (CTA) of the head without and with contrast 2. Computed tomography angiography (CTA) of the neck with contrast HISTORY: Follow-up cerebral aneurysm TECHNIQUE: CT of the head was performed with images acquired from skull base to vertex without intravenous contrast. Computed tomographic angiography was then obtained from the aortic arch to the vertex following the uneventful administration of intravenous contrast. 3D images were generated on a dedicated workstation. Contrast information: 93 mL Optiray-350 COMPARISON: CTA dated 10/06/2021 FINDINGS: HEAD: Postsurgical changes of left frontotemporal craniotomy for aneurysm clipping seen. There is diffuse cerebral volume loss with mild dilatation of the lateral and third ventricles. There is no acute intracranial hemorrhage. No mass effect or midline shift is present. The akhtar-white matter differentiation is normal. The visualized portions of the orbits are normal. The visualized portions of the mastoids are normal. The visualized portions of the paranasal sinuses are normal. No fractures are identified. NECK: Scattered subcentimeter lymph nodes are seen in the neck. None are pathologically enlarged. The muscles of the neck are normal. Fascial planes are preserved and the deep spaces of the neck are normal. The visualized airway is widely patent. There is mild to moderate stepwise anterolisthesis of C3-C5 with focal kyphosis seen at these levels. There is moderate to severe degenerative disc disease from C6-C7. There is mild spinal canal stenosis from C5-C6. There is moderate to severe osseous neural foraminal stenosis on the right at C4-C5. Small amount of fluid/debris is seen within the esophagus. Imaged lungs demonstrate mild dependent atelectasis. CTA: Examination is mildly limited by phase of contrast. Within this limitation, there is no significant change of the right superior cerebellar artery/basilar tip aneurysm measuring 0.7 x 0.4 cm (11/235) without evidence of rupture. The visualized aortic arch appears normal with normal configuration of the great vessels. The innominate artery and both subclavian arteries are normal in course and caliber. The common carotid arteries are normal in course and caliber with normal carotid bifurcations bilaterally. The course and caliber of the internal carotid arteries in the neck are normal. No areas of atherosclerotic narrowing or filling defects are identified. The visualized course and caliber of the internal carotid arteries in the head are normal. No areas of atherosclerotic narrowing or filling defects are identified. The fosjdl-qp-Jqbynr is complete. The anterior and middle cerebral arteries are normal. The vertebral arteries are right dominant. The basilar artery is normal. The posterior cerebral arteries are normal. IMPRESSION: 1. Grossly unchanged right superior cerebellar artery/basilar artery tip aneurysm measuring 0.7 x 0.4 cm within limitation of suboptimal phase of contrast. 2. Postsurgical changes of left frontotemporal craniotomy and previous posterior communicating artery aneurysm clipping. Dictated by: Andrews Paul MD PHD The radiology attending physician has personally reviewed this study, and had reviewed and/or edited this written report and agrees with it. Electronically signed by: Gera Carlisle M.D, PHD us Navdeep Aponte MD IMG CT PROCEDURES Final Res ult * POCT creatinine (03/19/2024 7:23 AM DIRECTOR DECISION SUPPORT) Creatinine POC 0.8 0.6 - 1.1 mg/dL Blood 03/19/2024 7:23 AM DIRECTOR DECISION SUPPORT 03/19/2024 7:23 AM DIRECTOR DECISION SUPPORT Navdeep Aponte MD LAB POCT ORDERABLES - DEVIC E Final Result [facility] Department [place] [address] from Last 3 Months Insurance MEDICARE MOG Member Subscriber Plan / Payer (Ef fective 2021-Present) Name:Jade Angulo Relation to Subscriber:Self Name:Jade Angulo Payer ID:[id number] Group ID:[id number] Type:COMMERCIAL Address: [address] [place] [address] [place] Sub[place] Plan / Payer (Ef fective 2021-Present) Name:Jade Angulo Relation to Subscriber:Self Name:Jade Angulo Payer ID:[id number] Group ID:[id number] Type:COMMERCIAL Address: [address] [place], [place] [address] MEDICARE Care Teams Aircraft Load Controller Relationship Specialty Start Date End Date Julius Flores MD [address] [place] [address] [address] [place] [id number] PCP - General Family Medicine 06/04/23
--- OUTSIDE RECORDS SUMMARY | 2024-04-23 10:27 | XMS_ITS | Encounter Summary ---
Author Organization [facility] Address [address] [place] [address] Care Team Providers Care Hemodialysis Charge Nurse Name Role Phone No, Physician Primary Care Provider [phone] Saritha Melchor MD Primary Care Provider [phone] Julius Flores MD Primary Care Provider [phone] Encounter Details Date Type Department Care Team (Late st Contact Info) Description 1955 Orders Only [facility] ProviderAshly MD [address] [place] [id number] Social History Tobacco Use Types Packs/Day Years Used Date Smoking Tobacco: Never Assessed Comments Unknown Sex and Gender Information Value Date Recorded Sex Assigned at Not on file Legal Sex Female 1:05 AM ONCOLOGY TECHNICIAN Gender Identity Not on file Sexual Orientation Not on file documented as of this encounter Plan of Treatment Not on file documented as of this encounter Procedures Procedure Name Priority Date/Time Associated Diagnosis Comments CARDIOLOGY REPORT 1955 documented in this encounter Results * CARDIOLOGY REPORT (1955) Anatomical Region Laterality Modality Other Narrative 1955 Ordered by an unspecified provider. Historical Provider [facility] CLAIRE ALBERTO Final Result documented in this encounter Visit Diagnoses Not on filedocumented in this encounter Care Teams Hemodialysis Charge Nurse Relationship Specialty Start Date End Date No, Physician PCP - General 01/25/17 01/31/17 Saritha Melchor MD [address] [place] [address] PCP - General 02/01/17 06/03/23 Julius Flores MD [facility] [address] [place] [address] PCP - General Family Medicine 06/04/23 documented as of this encounter
--- OUTSIDE RECORDS SUMMARY | 2024-04-23 10:27 | XMS_ITS | Referral Summary ---
Author Organization [facility] Address [address] [place] [address] Care Team Providers Care Upholstery Estimator Name Role Phone Julius Flores MD Primary Care Provider [phone] Encounters Date Type Department Care Team Description 03/19/2024 Telephone [facility] Neurosurgery [address] [place] [address] [facility] 6th [place] [address] [place] [address] Dang Pineda NP 03/19/2024 9:00 AM TEST PREPARER Office Visit [facility] Neurosurgery [address] [place] [address] 6th [place] [address] [place] [address] Dang Pineda NP Aneurysm (CMS/HCC) (HCC); Cerebral arterial aneurysm 03/19/2024 7:01 AM TEST PREPARER - 03/19/2024 11:59 PM TEST PREPARER Hospital Encounter [facility] [address] [place] [id number] Navdeep Aponte MD Cerebral aneurysm, nonruptured Discharge Disposition: Discharge to home or self care 02/26/2024 Telephone [facility] Scheduling [facility] [place] [address] Aurora Johnston from Last 3 Months Allergies No known active allergies Medications ascorbic acid-multivit,m ins 18 1,000 mg tablet 500 mg daily 04/01/2009 Active aspirin 325 mg tablet Active MULTIVITAMIN ORAL Active calcium citrate-vitamin D3 (CITRACAL WITH D) 315 mg- 250 unit per tablet daily 630mg - 500iu Active omega 2-sgm-ojn-fish oil 300-1,000 mg capsule TAKE 1 CAPSULE 3 TIMES DAILY Active atorvastatin (LIPITOR) 20 mg tablet TK 1 T PO QHS 10 03/01/[address] (PROTONIX) 40 mg EC tablet 40 MG ORALLY EVERY MORNING 01/14/2024 Active Active Problems Problem Noted Date Diagnosed Date Aneurysm ([facility]) 03/27/2019 Cerebral arterial aneurysm 08/12/2012 Immunizations Name Administration Dates Next Due Influenza, Trivalent, Preservative Free, Intramu scular 11/23/2016 ZOSTER LIVE 02/22/2012 Social History Tobacco Use Types Packs/Day Years [...] on file Legal Sex Female 1:05 AM TEST PREPARER Gender Identity Not on file Sexual Orientation Not on file Last Filed Vital Signs Vital Sign Reading Time Taken Comments Blood Pressure 143/86 03/19/2024 9:00 AM TEST PREPARER Pulse 88 03/19/2024 9:00 AM TEST PREPARER Temperature - - Respiratory Rate - - Oxygen Saturation - - Inhaled Oxygen Concentration - - Weight 58.3 kg (128 lb 9.6 oz) 10/06/2021 11:48 AM CDT Height 147.3 cm (4' 10 ) 03/19/2024 9:00 AM TEST PREPARER Body Mass Index 26.88 10/06/2021 11:48 AM CDT Plan of Treatment Not on file Procedures Procedure Name Priority Date/Time Associated Diagnosis Comments CTA HEAD NECK W WO CONTRAST Schedule Routine, Read Routine (OP Routine) 03/19/2024 7:40 AM TEST PREPARER Cerebral aneurysm, nonruptured POCT CREATININE - DEVICE Routine 03/19/2024 7:23 AM TEST PREPARER from Last 3 Months Results * CTA Head Neck W WO Contrast (03/19/2024 7:40 AM TEST PREPARER) Anatomical Region Laterality Modality Head and Neck N/A Computed Tomogra phy 03/19/2024 8:52 AM TEST PREPARER Impressions 03/19/2024 9:05 AM TEST PREPARER 1. ??Grossly unchanged right superior cerebellar artery/basilar [...] Carlisle M.D, PHD Narrative 03/19/2024 9:05 AM TEST PREPARER EXAMINATION: 1. Computed tomography angiography (CTA) of [...] tip aneurysm measuring 0.7 x 0.4 cm () without evidence of rupture. The visualized aortic [...] narrowing or filling defects are identified. The qzaecw-sm-Qnujfz is complete. The anterior and middle cerebral [...] tip aneurysm measuring 0.7 x 0.4 cm () without evidence of rupture. The visualized aortic [...] narrowing or filling defects are identified. The ugftft-te-Cullqr is complete. The anterior and middle cerebral [...] Carlisle M.D, PHD us Navdeep Aponte MD IM CT PROCEDURES Final Res ult * POCT creatinine (03/19/2024 7:23 AM TEST PREPARER) Creatinine POC 0.8 0.6 - 1.1 mg/dL Blood 03/19/2024 7:23 AM TEST PREPARER 03/19/2024 7:23 AM TEST PREPARER us Navdeep Aponte MD LAB POCT ORDERABLES - DEVIC E Final Result [facility] Department [place] [address] from Last 3 Months Insurance MEDICARE [id number] Member Subscriber Plan / Payer ( fective 2021-Present) Name:Jade Angulo Relation to Subscriber:Self Name:Jade Angulo Payer ID:[id number] Group ID:[id number] Type:COMMERCIAL Address: [address] [place] [address] [place] CHO[place]F [place] [id number] Member Subscriber Plan / Payer (Ef fective 2021-Present) Name:Jade Angulo Relation to Subscriber:Self Name:Jade Angulo Payer ID:[id number] Group ID:[id number] Type:COMMERCIAL Address: [address] [place], [place] [address] MEDICARE Care Teams Upholstery Estimator Relationship Specialty Start Date End Date Julius Flores MD [address] [place] [address] [place] [address] PCP - General Family Medicine 06/04/23
--- OUTSIDE RECORDS SUMMARY | 2024-04-23 10:27 | XMS_ITS | Encounter Summary ---
Author Organization [facility] Address [address] [facility] [address] [place] [address] Care Team Providers Care Credit And Loan Collections Supervisor Name Role Phone No, Physician Primary Care Provider [phone] Saritha Melchor MD Primary Care Provider [phone] Julius Flores MD Primary Care Provider [phone] Encounter Details Date Type Department Care Team (Late st Contact Info) Description 03/15/2016 [facility] ProviderAshly MD [address] [place] [address] Social History Tobacco Use Types Packs/Day Years Used Date Smoking Tobacco: Former Comments Unknown Sex and Gender Information Value Date Recorded Sex Assigned at Not on file Legal Sex Female 1:05 AM PARK POLICE Gender Identity Not on file Sexual Orientation Not on file documented as of this encounter Plan of Treatment Not on file documented as of this encounter Procedures Procedure Name Priority Date/Time Associated Diagnosis Comments CARDIOLOGY REPORT 03/15/2016 documented in this encounter Results * CARDIOLOGY REPORT (03/15/2016) Anatomical Region Laterality Modality Other Narrative 03/15/2016 Ordered by an unspecified provider. Historical Provider [facility] CLAIRE ALBERTO Final Result documented in this encounter Visit Diagnoses Not on filedocumented in this encounter Care Teams Credit And Loan Collections Supervisor Relationship Specialty Start Date End Date No, Physician PCP - General 01/25/17 01/31/17 Saritha Melchor MD [address] [place] [address] PCP - General 02/01/17 06/03/23 Julisu Flores MD [address] [place] [address] [place], [place] [id number] PCP - General Family Medicine 06/04/23 documented as of this encounter
== END 2024-04-23 09:52 | disposition home or self-care (01) ==
LOC: ANHIMG 09:53
PROVIDERS: PCP Family Medicine; Visit Provider Family Medicine
DX: Z12.31 Encounter for screening mammogram for malignant neoplasm of breast (principal)
CPT/HCPCS: 77063; 77067

== ENCOUNTER 2024-07-06 11:57 | Outpatient (CLI) | payer MEDICARE, SELFPAY ==
--- NOTE | ~2024-07-06 | DEXA_ITS ---
Bone Density Report Name: CATE BISHOP Age: 68 Sex: Female Ethnicity: White Date of : 1955 Indication: postmenopausal; screening for osteoporosis; height loss; prior fracture; cancer; hysterectomy; Referring Provider: MARKELL COLINDRES Study: Bone densitometry was performed. Exam Date: July 06, 2024 Accession number: [id number] Bone Density: Region BMD T-score Z-score Classification AP Spine(L1-L4) 0.965 -0.7 1.3 Normal Femoral Neck (Left) 0.584 -2.4 -0.7 Osteopenia Total Hip (Left) 0.827 -0.9 0.5 Normal Femoral Neck (Right) 0.617 -2.1 -0.4 Osteopenia Total Hip (Right) 0.858 -0.7 0.7 Normal Femoral Neck Mean 0.601 -2.2 -0.5 Osteopenia Total Hip Mean 0.842 -0.8 0.6 Normal World Health Organization criteria for BMD impression classify patients as: Normal (T-score at or above -1.0), Osteopenia (T-score between -1.0 and -2.5), or Osteoporosis (T-score at or below -2.5). 10-year Fracture Risk: FRAX not reported because: Prior hip or vertebral fracture Treated for osteoporosis Clinical Information Provided by Patient: Have had a previous hip or vertebral fracture Has had a low trauma fracture Is being treated for osteoporosis Has used the following medications: Prolia (i.e. denosumab), Vitamin D, Calcium, MULTI Has the following medical conditions: Cancer, Hysterectomy Patient maximum height was 60 Menopause Age: 45 No regular weight bearing exercise Drinks caffeinated beverages Onset of menses at age 11 Number of children 2 Impression: The patient has low bone mass, based on the Left Femoral Neck T-score. The patient has risk factors, including: previous fracture. Discussion: It is important to ask patients whether they are taking their medications and to encourage continued and appropriate compliance with their osteoporosis therapies to reduce fracture risk. It is also important to review their risk factors and encourage appropriate calcium and vitamin D intakes, exercise, fall prevention and other lifestyle measures. Follow-Up: Consider a repeat BMD and Vertebral Fracture Assessment (VFA) exam in 2 years or sooner if medically necessary, to reassess this patient's status. Reported by: JENN on 07/06/2024 12:23:00 PM. Reviewed, dictated and finalized at location A.
--- OUTSIDE RECORDS SUMMARY | 2024-07-06 13:23 | XMS_ITS | Encounter Summary ---
Author Organization [facility] Address [address] [facility] [address] [place] [address] Care Team Providers Care Fire Department Battalion Chief Name Role Phone No, Physician Primary Care Provider Saritha Melchor MD Primary Care Provider [phone] Julius Flores MD Primary Care Provider [phone] Encounter Details Date Type Department Care Team (Late st Contact Info) Description 03/15/2016 [facility] Only [facility] ProviderAshly MD [address] [place] [address] Social History Tobacco Use Types Packs/Day Years Used Date Smoking Tobacco: Former Comments Unknown Sex and Gender Information Value Date Recorded Sex Assigned at Not on file Legal Sex Female 1:05 AM GOLF COURSE MECHANIC Gender Identity Not on file Sexual Orientation [...] on filedocumented in this encounter Care Teams Fire Department Battalion Chief Relationship Specialty Start Date End Date No, Physician PCP - General 01/25/17 01/31/17 Saritha Melchor MD [address] [place] [address] PCP - General 02/01/17 06/03/23 Julius Flores MD [address] [place] [address] [address] [place], [place] [id number] PCP - General Family Medicine 06/04/23 documented as of this encounter
--- OUTSIDE RECORDS SUMMARY | 2024-07-06 13:23 | XMS_ITS | Referral Summary ---
Author Organization [facility] Address [address] [place] [address] Care Team Providers Care Jig And Fixture Maker Name Role Phone Julius Flores MD Primary Care Provider [phone] Allergies No known active allergies Medications ascorbic acid-multivit,m ins 18 1,000 mg tablet 500 mg daily 04/01/2009 Active aspirin 325 mg tablet Active MULTIVITAMIN ORAL Active calcium citrate-vitamin D3 (CITRACAL WITH D) 315 mg- 250 unit per tablet daily 630mg - 500iu Active omega 6-soa-mai-fish oil 300-1,000 mg capsule TAKE 1 CAPSULE 3 TIMES DAILY Active atorvastatin (LIPITOR) 20 mg tablet TK 1 T PO QHS 10 03/01/[address] (PROTONIX) 40 mg EC tablet 40 MG ORALLY EVERY MORNING 01/14/2024 Active Active Problems Problem Noted Date Diagnosed Date Aneurysm 03/27/2019 Cerebral arterial aneurysm 08/12/2012 Immunizations Immunization Administration Dates Next Due Influenza, Trivalent, Preservative [...] on file Legal Sex Female 1:05 AM CUSTOMER SUCCESS ADVOCATE Gender Identity Not on file Sexual Orientation Not on file Last Filed Vital Signs Vital Sign Reading Time Taken Comments Blood Pressure 143/86 03/19/2024 9:00 AM CUSTOMER SUCCESS ADVOCATE Pulse 88 03/19/2024 9:00 AM CUSTOMER SUCCESS ADVOCATE Temperature - - Respiratory Rate - - Oxygen Saturation - - Inhaled Oxygen Concentration - - Weight 58.3 kg (128 lb 9.6 oz) 10/06/2021 11:48 AM CDT Height 147.3 cm (4' 10 ) 03/19/2024 9:00 AM CUSTOMER SUCCESS ADVOCATE Body Mass Index 26.88 10/06/2021 11:48 AM CDT Plan of Treatment Not on file Insurance MEDICARE Personal On Demand Member Subscriber Plan / Payer (Ef fective 2021-Present) Name:Jade Angulo Relation to Subscriber:Self Name:Leeann Angulokolton Dhillon Payer ID:[id number] Group ID:[id number] Type:COMMERCIAL Address: [address] [place] [address] BL CHOICE PRF PPO [place] Personal On Demand Member Subscriber Plan / Payer (Ef fective 2021-Present) Name:Jade Angulo Relation to Subscriber:Self Name:Jade Angulo Payer ID:[id number] Group ID:[id number] Type:COMMERCIAL Address: [address] [place] [address] MEDICARE Care Teams Jig And Fixture Maker Relationship Specialty Start Date End Date Julius Flores MD [facility] [address] [place] [address] PCP - General Family Medicine 06/04/23
--- OUTSIDE RECORDS SUMMARY | 2024-07-06 13:23 | XMS_ITS | Clinical Summary ---
Author Organization [facility] Address [address] [place] [address] Care Team Providers Care Clinical Associate Name Role Phone Julius Flores MD Primary Care Provider [phone] Allergies No known active allergies Medications ascorbic acid-multivit,m ins 18 1,000 mg tablet 500 mg daily 04/01/2009 Active aspirin 325 mg tablet Active MULTIVITAMIN ORAL Active calcium citrate-vitamin D3 (CITRACAL WITH D) 315 mg- 250 unit per tablet daily 630mg - 500iu Active omega 3-int-aly-fish oil 300-1,000 mg capsule TAKE 1 CAPSULE [...] 02/22/2012 Surgical History Surgery Date Site/Laterality Comments CA UNLISTED PROCEDURE ABDOME N PERITONEUM & OMENTUM Hernia Repair - (Added by TW Conv) CA TOTAL ABDOMINAL HYSTERECT W/WO RMVL TUBE OVARY [...] headaches - (Added by TW Conv) Aneurysm Cancer (HCC) Osteoarthritis Family History Medical History Relation [...] on file Legal Sex Female 1:05 AM FRESH FOODS TECHNICIAN Gender Identity Not on file Sexual Orientation Not on file Obstetrics History Last Filed Vital Signs Vital Sign Reading Time Taken Comments Blood Pressure 143/86 03/19/2024 9:00 AM FRESH FOODS TECHNICIAN Pulse 88 03/19/2024 9:00 AM FRESH FOODS TECHNICIAN Temperature - - Respiratory Rate - - Oxygen Saturation - - Inhaled Oxygen Concentration - - Weight 58.3 kg (128 lb 9.6 oz) 10/06/2021 11:48 AM CDT Height 147.3 cm (4' 10 ) 03/19/2024 9:00 AM FRESH FOODS TECHNICIAN Body Mass Index 26.88 10/06/2021 11:48 AM CDT Plan of Treatment Health Maintenance Due Date Last Done Comments Breast Cancer Screening-Mammogram 1955 Colon Cancer Screening-Colonoscopy 1955 Depression Screening 1955 Fall Risk Assessment 1955 Hepatitis C Screening 1955 Osteoporosis Screening-Bone Density Scan 1955 DTaP/Tdap/Td Vaccine (1 - Tdap) 11/20/1966 Hepatitis B Screening 11/20/1973 Pneumococcal vaccine 65+ (1 of 1 - PCV) 11/20/2005 Zoster Vaccine (2 of 3) 04/18/2012 02/22/2012 Well Visit 65+ 11/20/2020 Influenza Vaccine (#1) 2023 11/23/2016 Insurance MEDICARE isocket Member Subscriber Plan / Payer (Ef fective 2021-Present) Name:Jade Angulo Relation to Subscriber:Self Name:Jade Angulo Payer ID:[id number] Group ID:[id number] Type:COMMERCIAL Address: [address] [place] [address] [facility] Member Subscriber Plan / Payer ( fective 2021-Present) Name:Jade Angulo Relation to Subscriber:Self Name:Jade Angulo Payer ID:[id number] Group ID:[id number] Type:COMMERCIAL Address: [address] [place] [address] MEDICARE Care Teams Clinical Associate Relationship Specialty Start Date End Date Julius Flores MD [address] [place] [address] [place] [address] PCP - General Family Medicine 06/04/23
--- OUTSIDE RECORDS SUMMARY | 2024-07-06 13:23 | XMS_ITS | Encounter Summary ---
Author Organization [facility] Address [address] [place] [address] Care Team Providers Care Machine Joiner Cementer Name Role Phone No, Physician Primary Care Provider [phone] Saritha Melchor MD Primary Care Provider [phone] Julius Flores MD Primary Care Provider [phone] Encounter Details Date Type Department Care Team (Late st Contact Info) Description 1955 Orders Only [facility] ProviderAshly MD [address] [place] [address] Social History Tobacco Use Types Packs/Day Years Used Date Smoking Tobacco: Never Assessed Comments Unknown Sex and Gender Information Value Date Recorded Sex Assigned at Not on file Legal Sex Female 1:05 AM ALL ROUND BUTCHER Gender Identity Not on file Sexual Orientation [...] on filedocumented in this encounter Care Teams Machine Joiner Cementer Relationship Specialty Start Date End Date No, Physician PCP - General 01/25/17 01/31/17 Saritha Melchor MD [address] [place] [address] PCP - General 02/01/17 06/03/23 Julius Flores MD [facility] [place] [address] PCP - General Family Medicine 06/04/23 documented as of this encounter
== END 2024-07-06 11:58 | disposition home or self-care (01) ==
LOC: CHSIMG 11:59
PROVIDERS: PCP Family Medicine; Visit Provider Nurse Practitioner Family
DX: Z78.0 Asymptomatic menopausal state (principal); M85.89 Other specified disorders of bone density and structure, multiple sites
CPT/HCPCS: 77080

== ENCOUNTER 2024-09-16 15:01 | Outpatient (CLI) | payer MEDICARE, SELFPAY ==
--- NOTE | ~2024-09-16 | XR_ITS ---
XR shoulder LT min 2V Ordering provider: JU Ricci History: . M25.512 - Pain in left shoulder . Comparison: None. FINDINGS: BONES: No acute fracture or dislocation. JOINT SPACES: The acromioclavicular joint is normal. The glenohumeral joint shows severe osteoarthrit ic changes. SOFT TISSUES: Normal. IMPRESSION: No acute osseous abnormality left shoulder. Severe osteoarthritic changes of the glenohumeral joint. Reviewed, dictated and finalized at location A.
== END 2024-09-16 15:02 | disposition home or self-care (01) ==
LOC: ANHLAB 15:03
PROVIDERS: PCP Family Medicine; Visit Provider Nurse Practitioner Family
DX: M19.012 Primary osteoarthritis, left shoulder (principal)
CPT/HCPCS: 73030

== ENCOUNTER 2024-11-06 07:47 | Outpatient (CLI) | payer MEDICARE, SELFPAY ==
--- OUTSIDE RECORDS SUMMARY | 2024-11-06 07:52 | XMS_ITS | Clinical Summary ---
Author Organization [facility] Address [address] [place] [address] Care Team Providers Care Procurement Officer Name Role Phone Julius Flores MD Primary Care Provider [phone] Allergies No known active allergies Medications ascorbic acid-multivit,m ins 18 1,000 mg tablet 500 mg daily 04/01/2009 Active aspirin 325 mg tablet Active MULTIVITAMIN ORAL Active calcium citrate-vitamin D3 (CITRACAL WITH D) 315 mg- 250 unit per tablet daily 630mg - 500iu Active omega 9-gev-evb-fish oil 300-1,000 mg capsule TAKE 1 CAPSULE [...] 02/22/2012 Surgical History Surgery Date Site/Laterality Comments MS UNLISTED PROCEDURE ABDOME N PERITONEUM & OMENTUM Hernia Repair - (Added by TW Conv) MS TOTAL ABDOMINAL HYSTERECT W/WO RMVL TUBE OVARY [...] on file Legal Sex Female 1:05 AM DEVICE PROCESSING ENGINEER Gender Identity Not on file Sexual Orientation Not on file Obstetrics History Last Filed Vital Signs Vital Sign Reading Time Taken Comments Blood Pressure 143/86 03/19/2024 9:00 AM DEVICE PROCESSING ENGINEER Pulse 88 03/19/2024 9:00 AM DEVICE PROCESSING ENGINEER Temperature - - Respiratory Rate - - Oxygen Saturation - - Inhaled Oxygen Concentration - - Weight 58.3 kg (128 lb 9.6 oz) 10/06/2021 11:48 AM CDT Height 147.3 cm (4' 10) 03/19/2024 9:00 AM DEVICE PROCESSING ENGINEER Body Mass Index 26.88 10/06/2021 11:48 AM [...] Well Visit 65+ 11/20/2020 Influenza Vaccine (#1) 2024 11/23/2016 Insurance MEDICARE Convio Member Subscriber Plan / Payer (Ef fective 2021-Present) Name:Jade Angulo Relation to Subscriber:Self Name:Jade Angulo Payer ID:[id number] Group ID:[id number] Type:COMMERCIAL Address: [address] [place] [address] [facility] Conv[facility] Member Subscriber Plan / Payer ( fective 2021-Present) Name:Jade Angulo Relation to Subscriber:Self Name:Jade Angulo Payer ID:[id number] Group ID:[id number] Type:COMMERCIAL Address: [address] [place] [address] MEDICARE Care Teams Procurement Officer Relationship Specialty Start Date End Date Julius Flores MD [address] [place] [address] [place] [address] PCP - General Family Medicine 06/04/23
--- OUTSIDE RECORDS SUMMARY | 2024-11-06 07:52 | XMS_ITS | Encounter Summary ---
Author Organization [facility] Address [address] [place] [address] Care Team Providers Care Operators Teacher Name Role Phone No, Physician Primary Care Provider [phone] Saritha Melchor MD Primary Care Provider [phone] Julius Flores MD Primary Care Provider [phone] Encounter Details Date Type Department Care Team (Late st Contact Info) Description 1955 [facility] Only [facility] ProviderAshly MD [address] [place] [address] Social History Tobacco Use Types Packs/Day Years Used Date Smoking Tobacco: Never Assessed Comments Unknown Sex and Gender Information Value Date Recorded Sex Assigned at Not on file Legal Sex Female 1:05 AM BEEF LUGGER Gender Identity Not on file Sexual Orientation [...] on filedocumented in this encounter Care Teams Operators Teacher Relationship Specialty Start Date End Date No, Physician PCP - General 01/25/17 01/31/17 Saritha Melchor MD [address] [address] PCP - General 02/01/17 06/03/23 Julius Flores MD [facility] [place] [address] PCP - General Family Medicine 06/04/23 documented as of this encounter
--- OUTSIDE RECORDS SUMMARY | 2024-11-06 07:52 | XMS_ITS | Encounter Summary ---
Author Organization [facility] Address [address] [place] [address] Care Team Providers Care Long Wall Shear Operator Name Role Phone No, Physician Primary Care Provider [phone] Saritha Melchor MD Primary Care Provider [phone] Julius Flores MD Primary Care Provider [phone] Encounter Details Date Type Department Care Team (Late st Contact Info) Description 03/15/2016 [facility] Only [facility] ProviderAshly MD [address] [place] [address] Social History Tobacco Use Types Packs/Day Years Used Date Smoking Tobacco: Former Comments Unknown Sex and Gender Information Value Date Recorded Sex Assigned at Not on file Legal Sex Female 1:05 AM WOOD WEB WEAVING MACHINE OPERATOR Gender Identity Not on file Sexual Orientation [...] on filedocumented in this encounter Care Teams Long Wall Shear Operator Relationship Specialty Start Date End Date No, Physician PCP - General 01/25/17 01/31/17 Saritha Melchor MD [address] [place] [address] PCP - General 02/01/17 06/03/23 Julius Flores MD [address] [place] [address] [place], [place] [id number] PCP - General Family Medicine 06/04/23 documented as of this encounter
[2024-11-06 08:20] LABS: Hematocrit 41.9 % (37.0-47.0); Hemoglobin 13.5 g/dL (12.0-15.0); Immature Granulocyte Percent A 0.2 % (0-0.5); Lymphocytes Absolute Auto 1.37 K/mm3 (0.9-3.2); Mean Corpuscular HGB Conc 32.2 g/dl (32-36); Mean Corpuscular Hemoglobin 30.1 pg (26-34); Mean Corpuscular Volume 93.5 fl (80-100); Nucleated Red Blood Cells Absolute Auto 0.000 K/mm3 (0.0-0.012); Nucleated Red Blood Cells Perc 0.0 % (0.0-0.2); Platelet Count Result 233 k/mm3 (150-375); Red Blood Count 4.48 M/mm3 (4.2-5.4); White Blood Count 4.4 K/mm3 (4.5-10.0)
[2024-11-06 08:40] LABS: Alanine Aminotransferase 26 U/L (6-35); Albumin Level 4.6 g/dL (3.5-5.1); Alkaline Phosphatase 39 U/L (38-126); Anion Gap 9 mmol/L (4-12); Aspartate Amino Transferase 29 U/L (14-36); Bilirubin,Total 0.6 mg/dL (0.2-1.3); Blood Urea Nitrogen 14 mg/dL (7-17); Calcium 9.3 mg/dL (8.4-10.2); Carbon Dioxide 25 mmol/L (22-30); Chloride 102 mmol/L (98-107); Cholesterol 191 mg/dL (0-200); Estimated Glomerular Filt Rate > 60; Glucose 94 mg/dL (65-110); HDL Direct 75 mg/dL; Potassium 4.3 mmol/L (3.4-5.0); Sodium 136 mmol/L (137-145); Total Protein 7.3 g/dL (6.3-8.2); Triglycerides 131 mg/dL (<150)
[2024-11-06 09:16] LABS: Thyroid Stimulating Hormone 1.260 uIU/mL (0.465-4.680)
== END 2024-11-06 07:48 | disposition home or self-care (01) ==
LOC: ANHLAB 07:49
PROVIDERS: PCP Family Medicine; Visit Provider Nurse Practitioner Family
DX: I35.1 Nonrheumatic aortic (valve) insufficiency (principal); E78.2 Mixed hyperlipidemia; M81.0 Age-related osteoporosis without current pathological fracture; D50.9 Iron deficiency anemia, unspecified; M19.90 Unspecified osteoarthritis, unspecified site; I67.1 Cerebral aneurysm, nonruptured
CPT/HCPCS: 36415; 80053; 80061; 82306; 84443; 85025